=== PATIENT | female | born 1955 | race Caucasian/White ===

== ENCOUNTER 2017-07-06 20:41 | Inpatient (IN) | payer SELFPAY ==
[2017-07-06] MEDS ORDERED: Albuterol-Ipratrop 3 mg / 0.5 (3 ml) UD ONE (20:53)
[2017-07-06] MEDS: Albuterol-Ipratrop 3 mg / 0.5 (3 ml) UD IH SCH ×2 (21:11→22:07)
[2017-07-06 21:15] LABS: VENOUS BLOOD GAS BASE EXCESS 4.4 mmol/L (0.0-2.0); VENOUS BLOOD GAS PCO2 69 mmHg (40-60); VENOUS BLOOD PH 7.29 (7.32-7.43)
[2017-07-06 21:20] LABS: BASO # 0.2 K/uL (0.0-0.2); BASO % 2.7 % (0.0-2.0); EOS # 0.9 K/uL (0.0-0.7); EOS % 11.3 % (0.0-4.0); HEMATOCRIT 40.7 % (34.0-47.0); LYMPH # 2.6 K/uL (1.0-4.3); LYMPH % 33.1 % (20.0-40.0); MEAN CELL VOLUME 68.8 fL (81.0-99.0); MEAN CORPUSCULAR HEMOGLOBIN 21.6 pg (27.0-31.0); MEAN CORPUSCULAR HGB CONC 31.4 g/dL (33.0-37.0); MEAN PLATELET VOLUME 8.1 fL (7.2-11.7); MONO # 0.6 K/uL (0.0-0.8); MONO % 8.2 % (0.0-10.0); RED CELL DISTRIBUTION WIDTH 14.7 % (11.5-14.5); WHITE BLOOD COUNT 7.8 K/uL (4.8-10.8)
[2017-07-06 21:29] LABS: CHLORIDE 99 mmol/L (98-107); SODIUM 137 mmol/L (132-148)
[2017-07-06 21:30] LABS: POTASSIUM 3.9 mmol/L (3.6-5.2)
[2017-07-06 21:32] LABS: ALKALINE PHOSPHATASE 62 U/L (38-126); AST/SGOT 23 U/L (14-36); BILIRUBIN,TOTAL 0.4 mg/dL (0.2-1.3); BLOOD UREA NITROGEN 10 mg/dL (7-17); CARBON DIOXIDE 27 mmol/L (22-30); GFR AFRICAN-AMERICAN > 60; TOTAL PROTEIN 8.7 g/dL (6.3-8.3)
[2017-07-06 21:33] LABS: ALT/SGPT 33 U/L (9-52); CALCIUM 9.8 mg/dl (8.6-10.4); GLUCOSE,RANDOM 102 mg/dL (65-105)
[2017-07-06 21:36] LABS: ALB/GLOB RATIO 1.2 (1.0-2.1)
[2017-07-06] MEDS ORDERED: cefTRIAXone IV 1 gm in Dextros 50 ML IVPB ONE (21:50)
[2017-07-06] MEDS ORDERED: Azithromycin 500 MG in Sodium Chloride 0.9% 250 ML IVPB ONE (22:00)
[2017-07-06 22:11] LABS: ABG ALLEN TEST A; ARTERIAL BLOOD HGB O2 SAT 92.3 % (95.0-98.0); CARBOXYHEMOGLOBIN 1.9 % (0.5-1.5); DRAW SITE LR; HHB 4.8 % (0.0-5.0)
--- NOTE | 2017-07-06 22:26 | C.PDOC ---
Time Seen by Provider: 07/06/17 20:48 Chief Complaint (Nursing): Shortness Of Breath History Per: Patient, Family Onset/Duration Of Symptoms: Days (about 1-2 weeks) Current Symptoms Are (Timing): Still Present Initiating Event: Upper Respiratory Illness (?), Other (Change in weather) Current Respiratory Medications: None Severity: Severe Associated Symptoms: Productive Cough Recent travel outside of the [place]: No Additional History Per: Prior Records Past Medical History Reviewed: Historical Data, Nursing Documentation, Vital Signs Vital Signs: Last Vital Signs Temp 98.6 F 07/06/17 20:45 Pulse 114 H 07/06/17 21:52 Resp 20 07/06/17 21:52 BP 97/68 L 07/06/17 21:52 Pulse Ox 96 07/06/17 21:52 - Medical History PMH: No Chronic Diseases Surgical History: No Surg Hx Family History: States: Unknown Family Hx - Social History Hx Tobacco Use: No Hx Alcohol Use: No Hx Substance Use: No Review Of Systems Except As Marked, All Systems Reviewed And Found Negative. Constitutional: Positive for: Fever (?) ENT: Negative for: Throat Pain Cardiovascular: Negative for: Chest Pain Respiratory: Positive for: Cough, Shortness of Breath, Wheezing. Negative for: Hemoptysis Gastrointestinal: Negative for: Vomiting, Abdominal Pain, Diarrhea Genitourinary: Negative for: Dysuria Musculoskeletal: Negative for: Neck Pain, Back Pain, Leg Pain Skin: Negative for: Rash Neurological: Negative for: Weakness, Numbness Physical Exam - Physical Exam Appears: In Acute Distress Skin: Normal Color, Warm, Dry, No Rash Head: Atraumatic, Normacephalic Eye(s): bilateral: PERRL, EOMI Neck: Normal ROM, Supple Cardiovascular: Rhythm Regular Respiratory: No Accessory Muscle Use, Wheezing Gastrointestinal/Abdominal: Soft, No Tenderness Back: No CVA Tenderness Extremity: Normal ROM, No Pedal Edema, No Calf Tenderness Neurological/Psych: Oriented x3, Normal Motor, Normal Sensation ED Course And Treatment - Laboratory Results Result Diagrams: 07/06/17 21:15 07/06/17 21:15 Interpretation Of Abnormal: hypercarbia ECG: Interpreted By Me, Viewed By Me ECG Rhythm: Sinus Tachycardia, Nonspecific Changes Rate From EC O2 Sat by Pulse Oximetry: 91 (on RA) Pulse Ox Interpretation: Abnormal Interpretation Of Abnormal: Hypoxia on RA - Radiology CXR: Interpreted by Me, Viewed By Me CXR Interpretation: Yes: Infiltrates (LLL) Progress Note: Hypercarbia improved after meds and pt is no longer in distress, but pt is still wheezing and hypoxic on RA. Progress - Interventions Interventions:: Observation, Intravenous fluid, Oxygen - Medications Administered Inhaled nebulized: Anticholinergic, Beta-2 agonist Intravenous: Corticosteroid, Other (Abx) - Data Reviewed Data Reviewed: Lab, Diagnostic imaging, EKG, Old records - Patient Status Patient status: Partially improved - Critical Care Citical Care: Excluding Proc Time Critical Care Time: 45 minutes - Continuity of Care Discussed patient case with:: Patient, Family-HIPPA compliant, ED Nurse, On- call PMD-pt unassigned - Patient Plan Patient Plan: Admission Disposition Discussed With : Shoaib Verduzco Comment: He accepted pt on hospitalist service. Doctor Will See Patient In The: Hospital Counseled Patient/Family Regarding: Studies Performed, Diagnosis - Disposition Disposition: HOSPITALIZED Disposition Time: 22:30 Condition: FAIR - Clinical Impression Clinical Impression: Pneumonia, Wheezing, Hypoxia
--- NOTE | 2017-07-06 23:44 | CP.PCM.HP ---
<RodneyNandini SSharmaine - Last Filed: 07/06/17 23:47> History of Present Illness - History of Present Illness History of Present Illness: CC: "shortness of breath" HPI: 61 year old [place] female with no past medical history who presents to the hospital today for difficulty breathing. History and review of systems was done by seal delivery vehicle officer #[id number] and with patient's daughter per phone. Patient is currently oriented to person and place but believes it is 1917. Per daughter she is usually oriented x3 at home. Per daughter the patient has been having shortness of breath for one week which she went to her PMD and she received and completed a 5 day course of antibiotic called Azythromycin. Patient states she usually has more shortness of breath when she is laying down. Per daughter the patient has been coughing for the past 2 days mildly with some white sputum. The patient denies chest pain or palpitations. Per daughter the patient denies fever, nausea, vomiting, constipation, diarrhea or dysuria. The daughter states she has not been around anyone that has been sick. The last time she traveled to [facility] was September 2015 and she has not recently traveled anywhere. PMD: Dr. Goldstein Past Medical History: denies Past Surgical History: denies Medications: denies Allergies: dust allergy, NKDA Family History: denies Present on Admission - Present on Admission Any Indicators Present on Admission: No Review of Systems - Review of Systems Systems not reviewed;Unavailable: Altered Mental Status, Language Barrier - Constitutional Constitutional: absent: Headache - Cardiovascular Cardiovascular: Dyspnea. absent: Chest Pain, Chest Pain at Rest, Chest Pain with Activity - Respiratory Respiratory: Dyspnea, Dyspnea on Exertion - Gastrointestinal Gastrointestinal: absent: Constipation, Diarrhea, Nausea, Vomiting - Neurological Neurological: absent: Weakness Past Patient History - Past Social History Smoking Status: Never Smoked - PSYCHIATRIC Hx Substance Use: No Meds Allergies/Adverse Reactions: Allergies Allergy/AdvReac Type Severity Reaction Status Date / Time No Known Allergies Allergy Verified 07/06/17 20:53 Physical Exam - Constitutional Appears: No Acute Distress, Cachectic - Head Exam Head Exam: ATRAUMATIC, NORMAL INSPECTION, NORMOCEPHALIC - Eye Exam Eye Exam: EOMI, Normal appearance, PERRL Pupil Exam: NORMAL ACCOMODATION - ENT Exam ENT Exam: Mucous Membranes Moist - Neck Exam Neck exam: Positive for: Normal Inspection - Respiratory Exam Respiratory Exam: Wheezes, NORMAL BREATHING PATTERN. absent: Clear to Auscultation Bilateral - Cardiovascular Exam Cardiovascular Exam: REGULAR RHYTHM, RRR, +S1, +S2. absent: JVD - GI/Abdominal Exam GI & Abdominal Exam: Normal Bowel Sounds, Soft. absent: Tenderness - Extremities Exam Extremities exam: Positive for: normal inspection. Negative for: pedal edema, tenderness - Neurological Exam Neurological exam: Alert Additional comments: Oriented to person and place. Stated it was currently 191 - Skin Skin Exam: Normal Color, Warm Results - Vital Signs Recent Vital Signs: Last Vital Signs Temp 98.6 F 07/06/17 20:45 Pulse 106 H 07/06/17 22:41 Resp 18 07/06/17 22:41 BP 119/68 07/06/17 22:41 Pulse Ox 97 07/06/17 22:41 - Labs Result Diagrams: 07/06/17 21:15 07/06/17 21:15 Labs: Laboratory Results - last 24 hr 07/06/17 07/06/17 07/06/17 21:10 21:10 21:15 WBC 7.8 RBC 5.92 H Hgb 12.8 Hct 40.7 MCV 68.8 L MCH 21.6 L MCHC 31.4 L RDW 14.7 H Plt Count 385 MPV 8.1 Neut % (Auto) 44.7 L Lymph % (Auto) 33.1 [place] % (Auto) 8.2 Eos % (Auto) 11.3 H Baso % (Auto) 2.7 H Neut # 3.5 Lymph # 2.6 [place] # 0.6 Eos # 0.9 H Baso # 0.2 Puncture Site pCO2 pO2 20 L HCO3 ABG pH ABG Total CO2 ABG O2 Saturation ABG Base Excess ABG Hemoglobin ABG Carboxyhemoglobin POC ABG HHb (Measured) ABG Methemoglobin Tucker Test VBG pH 7.29 L VBG pCO2 69 H* VBG HCO3 26.4 VBG Total CO2 35.3 H VBG O2 Sat (Calc) 33.7 L VBG Base Excess 4.4 H VBG Potassium 3.8 A-a O2 Difference Respiratory Index Hgb O2 Saturation Sodium 140.0 Chloride 105.0 Glucose 115 H Lactate 1.0 FiO2 Crit Value Called To Ronit jacob md Crit Value Called By Thompson vaca commercial lending assistant Crit Value Read Back Y Blood Gas Notified Time 2116 Potassium Carbon Dioxide Anion Gap BUN Creatinine Est GFR ( Amer) Est GFR (Non-Af Amer) Random Glucose Calcium Total Bilirubin AST ALT Alkaline Phosphatase Troponin I NT-Pro-B Natriuret Pep Total Protein Albumin Globulin Albumin/Globulin Ratio Venous Blood Potassium 3.8 Influenza Typ A,B (EIA) Negative for flu a/b 07/06/17 07/06/17 21:15 22:05 WBC RBC Hgb Hct MCV MCH MCHC RDW Plt Count MPV Neut % (Auto) Lymph % (Auto) Jessamine % (Auto) Eos % (Auto) Baso % (Auto) Neut # Lymph # Jessamine # Eos # Baso # Puncture Site Lr pCO2 50 H pO2 65 L HCO3 25.8 ABG pH 7.35 ABG Total CO2 29.1 H ABG O2 Saturation 95.1 ABG Base Excess 1.3 ABG Hemoglobin 11.6 L ABG Carboxyhemoglobin 1.9 H POC ABG HHb (Measured) 4.8 ABG Methemoglobin 1.0 Tucker Test A VBG pH VBG pCO2 VBG HCO3 VBG Total CO2 VBG O2 Sat (Calc) VBG Base Excess VBG Potassium A-a O2 Difference 72.0 Respiratory Index 1.1 Hgb O2 Saturation 92.3 L Sodium 137 Chloride 99 Glucose Lactate FiO2 28.0 Crit Value Called To Crit Value Called By Crit Value Read Back Blood Gas Notified Time Potassium 3.9 Carbon Dioxide 27 Anion Gap 15 BUN 10 Creatinine 0.8 Est GFR ( Amer) > 60 Est GFR (Non-Af Amer) > 60 Random Glucose 102 Calcium 9.8 Total Bilirubin 0.4 AST 23 ALT 33 Alkaline Phosphatase 62 Troponin I < 0.0120 NT-Pro-B Natriuret Pep 54.3 Total Protein 8.7 H Albumin 4.6 Globulin 4.0 H Albumin/Globulin Ratio 1.2 Venous Blood Potassium Influenza Typ A,B (EIA) Assessment & Plan - Assessment and Plan (Free Text) Assessment: 1.) Shortness of breath secondary to possible community acquired pneumonia - Rocephin started 07/06 - Azithromycin started 07/06 - Betty-medrol 40mg q8 - Duonebs q4H - NC 2L PRN - Influenza A&B: negative - Troponin: Negative - f/u chest x-ray - f/u blood culture 2.) Acidemia - resolved - ABG pH: 7.35 - ABG O2 saturation: 95.1 - HCO3: 25.8 - pCO2: 50 3.) Prophylaxis - Heparin SC - Pepcid 20mg daily - SCDs Discussed with Dr. Luba Stevens PGY-1 <Shoaib Verduzco - Last Filed: 07/07/17 06:35> Results - Vital Signs Recent Vital Signs: Last Vital Signs Temp 97.8 F 07/07/17 00:42 Pulse 109 H 07/07/17 00:42 Resp 20 07/07/17 00:42 BP 96/62 L 07/07/17 00:42 Pulse Ox 99 07/07/17 00:42 - Labs Result Diagrams: 07/06/17 21:15 07/06/17 21:15 Labs: Laboratory Results - last 24 hr 07/06/17 07/06/17 07/06/17 21:10 21:10 21:15 WBC 7.8 RBC 5.92 H Hgb 12.8 Hct 40.7 MCV 68.8 L MCH 21.6 L MCHC 31.4 L RDW 14.7 H Plt Count 385 MPV 8.1 Neut % (Auto) 44.7 L Lymph % (Auto) 33.1 [place] % (Auto) 8.2 Eos % (Auto) 11.3 H Baso % (Auto) 2.7 H Neut # 3.5 Lymph # 2.6 [place] # 0.6 Eos # 0.9 H Baso # 0.2 Puncture Site pCO2 pO2 20 L HCO3 ABG pH ABG Total CO2 ABG O2 Saturation ABG Base Excess ABG Hemoglobin ABG Carboxyhemoglobin POC ABG HHb (Measured) ABG Methemoglobin Tucker Test VBG pH 7.29 L VBG pCO2 69 H* VBG HCO3 26.4 VBG Total CO2 35.3 H VBG O2 Sat (Calc) 33.7 L VBG Base Excess 4.4 H VBG Potassium 3.8 A-a O2 Difference Respiratory Index Hgb O2 Saturation Sodium 140.0 Chloride 105.0 Glucose 115 H Lactate 1.0 FiO2 Crit Value Called To Ronit jacob md Crit Value Called By Thompson vaca commercial lending assistant Crit Value Read Back Y Blood Gas Notified Time 2116 Potassium Carbon Dioxide Anion Gap BUN Creatinine Est GFR ( Amer) Est GFR (Non-Af Amer) Random Glucose Calcium Total Bilirubin AST ALT Alkaline Phosphatase Troponin I NT-Pro-B Natriuret Pep Total Protein Albumin Globulin Albumin/Globulin Ratio Venous Blood Potassium 3.8 Influenza Typ A,B (EIA) Negative for flu a/b 07/06/17 07/06/17 21:15 22:05 WBC RBC Hgb Hct MCV MCH MCHC RDW Plt Count MPV Neut % (Auto) Lymph % (Auto) Jess[place] % (Auto) Eos % (Auto) Baso % (Auto) Neut # Lymph # [place] # Eos # Baso # Puncture Site Lr pCO2 50 H pO2 65 L HCO3 25.8 ABG pH 7.35 ABG Total CO2 29.1 H ABG O2 Saturation 95.1 ABG Base Excess 1.3 ABG Hemoglobin 11.6 L ABG Carboxyhemoglobin 1.9 H POC ABG HHb (Measured) 4.8 ABG Methemoglobin 1.0 Tucker Test A VBG pH VBG pCO2 VBG HCO3 VBG Total CO2 VBG O2 Sat (Calc) VBG Base Excess VBG Potassium A-a O2 Difference 72.0 Respiratory Index 1.1 Hgb O2 Saturation 92.3 L Sodium 137 Chloride 99 Glucose Lactate FiO2 28.0 Crit Value Called To Crit Value Called By Crit Value Read Back Blood Gas Notified Time Potassium 3.9 Carbon Dioxide 27 Anion Gap 15 BUN 10 Creatinine 0.8 Est GFR ( Amer) > 60 Est GFR (Non-Af Amer) > 60 Random Glucose 102 Calcium 9.8 Total Bilirubin 0.4 AST 23 ALT 33 Alkaline Phosphatase 62 Troponin I < 0.0120 NT-Pro-B Natriuret Pep 54.3 Total Protein 8.7 H Albumin 4.6 Globulin 4.0 H Albumin/Globulin Ratio 1.2 Venous Blood Potassium Influenza Typ A,B (EIA) Assessment & Plan - Date & Time Date: 07/07/17 (I have seen and examined the patient. I agree with the findings and plan of care as documented by Dr. Stevens. Patient with pneumonia. Rocephin and Azithromycin. Denies history of asthma or COPD. Positive for wheezing. Solumedrol, Duonebs, and oxygen. Check blood and sputum cultures. Monitor for acute changes.) Time: 06:34 Attending/Attestation - Attestation I have personally seen and examined this patient.: Yes I have fully participated in the care of the patient.: Yes I have reviewed all pertinent clinical information: Yes
[2017-07-07] MEDS: Albuterol-Ipratrop 3 mg / 0.5 (3 ml) UD INH SCH ×6 (00:05→23:46)
[2017-07-07 00:43] VITALS: RESP 20
[2017-07-07] MEDS ORDERED: Albuterol-Ipratrop 3 mg / 0.5 (3 ml) UD INH SCH (02:00)
[2017-07-07] MEDS: MethylPREDNISolone 40 mg Vial IV SCH ×3 (06:03→22:28)
--- NOTE | 2017-07-07 09:29 | RAD ---
PROCEDURE: CHEST RADIOGRAPH, 1 VIEW HISTORY: Shortness of breath COMPARISON: None available. FINDINGS: LUNGS: Mild venous congestion. Bibasilar breast and nipple shadows. Mild patchy increased markings at the bases. Correlation with lateral view may be helpful. Few scattered upper lobe granulomatous changes. PLEURA: No pneumothorax or pleural fluid seen. CARDIOVASCULAR: Calcification at the aortic knob. OSSEOUS STRUCTURES: No significant abnormalities. VISUALIZED UPPER ABDOMEN: Normal. OTHER FINDINGS: None. IMPRESSION: Mild venous congestion. Bibasilar breast and nipple shadows. Mild patchy increased markings at the bases. Correlation with lateral view may be helpful. Few scattered upper lobe granulomatous changes.
[2017-07-07] MEDS: Azithromycin 500 MG in Sodium Chloride 0.9% 250 ML IVPB SCH (10:44)
--- NOTE | 2017-07-07 16:15 | CP.PCM.PN ---
<BuckyRichard R - Last Filed: 07/07/17 16:11> Subjective - Date & Time of Evaluation Date of Evaluation: 07/07/17 Time of Evaluation: 13:15 - Subjective Subjective: PGY-1 medicine note. No acute overnight events. Patient was seen and examined at bedside. She denied any complaints. She said she was breathing better. Dr Evans walked her around the hallway and she was able to without difficulty. She denied chest pain, shortness of breath, abdominal pain, headache, leg pain, nausea, vomiting, fever , chills, diarrhea, constipation. Objective - Vital Signs/Intake and Output Vital Signs (last 24 hours): Temp Pulse Resp BP Pulse Ox 97.6 F 110 H 20 104/67 96 07/07/17 08:34 07/07/17 14:44 07/07/17 08:34 07/07/17 14:44 07/07/17 14:44 - Medications Medications: Current Medications Albuterol/Ipratropium (Duoneb 3 Mg/0.5 Mg (3 Ml) Ud) 3 ml INH RQ4 [facility] Last Admin: 07/07/17 16:06 Dose: 3 ml Famotidine (Pepcid) 20 mg PO DAILY [facility] Last Admin: 07/07/17 10:45 Dose: 20 mg Heparin Sodium (Porcine) (Heparin) 5,000 units SC Q8 [facility] Last Admin: 07/07/17 06:03 Dose: 5,000 units Azithromycin 500 mg/ Sodium (Chloride) 250 mls @ 250 mls/hr IVPB DAILY [facility] Last Admin: 07/07/17 10:44 Dose: 250 mls/hr Ceftriaxone Sodium 1 gm/ (Sodium Chloride) 100 mls @ 100 mls/hr IVPB DAILY [facility] Last Admin: 07/07/17 10:43 Dose: 100 mls/hr Methylprednisolone (Solu-Medrol) 40 mg IV Q8 [facility] Last Admin: 07/07/17 06:03 Dose: 40 mg Pneumococcal Polyvalent Vaccine (Pneumovax 23 Vaccine) 0.5 ml IM .ONCE ONE Stop: 07/10/17 10:01 - Labs Labs: 07/06/17 21:15 07/06/17 21:15 - Additional Findings Additional findings: - Constitutional Appears: No Acute Distress, Cachectic - Head Exam Head Exam: ATRAUMATIC, NORMAL INSPECTION, NORMOCEPHALIC - Eye Exam Eye Exam: EOMI, Normal appearance, PERRL Pupil Exam: NORMAL ACCOMODATION - ENT Exam ENT Exam: Mucous Membranes Moist - Neck Exam Neck exam: Positive for: Normal Inspection - Respiratory Exam Respiratory Exam: Wheezes, NORMAL BREATHING PATTERN. absent: Clear to Auscultation Bilateral - Cardiovascular Exam Cardiovascular Exam: REGULAR RHYTHM, RRR, +S1, +S2. absent: JVD - GI/Abdominal Exam GI & Abdominal Exam: Normal Bowel Sounds, Soft. absent: Tenderness - Extremities Exam Extremities exam: Positive for: normal inspection. Negative for: pedal edema, tenderness - Neurological Exam Neurological exam: Alert, AAOx3 Additional comments: - Skin Skin Exam: Normal Color, Warm Assessment and Plan - Assessment and Plan (Free Text) Assessment: 1.) Shortness of breath secondary to possible community acquired pneumonia - Rocephin 1g iv qd started 07/06 - Azithromycin 500mg iv qd started 07/06 - Betty-medrol 40mg q8 - Duonebs q4H - NC 2L PRN - Influenza A&B: negative - Troponin: Negative - Pulmicort 0.25mg INH bid - chest x-ray 07/06 shows mild venous congestion and incrased markings at bases b/l - f/u blood culture 2.) Acidemia - resolved - ABG pH: 7.35 - ABG O2 saturation: 95.1 - HCO3: 25.8 - pCO2: 50 3.) Prophylaxis - Heparin SC - Pepcid 20mg daily - SCDs <Evans,Peter H - Last Filed: 07/07/17 16:29> Objective - Vital Signs/Intake and Output Vital Signs (last 24 hours): Temp Pulse Resp BP Pulse Ox 97.6 F 110 H 20 104/67 96 07/07/17 08:34 07/07/17 14:44 07/07/17 08:34 07/07/17 14:44 07/07/17 14:44 - Medications Medications: Current Medications Albuterol/Ipratropium (Duoneb 3 Mg/0.5 Mg (3 Ml) Ud) 3 ml INH RQ4 [facility] Last Admin: 07/07/17 16:06 Dose: 3 ml Budesonide (Pulmicort Respules) 0.25 mg INH RQ12 [facility] Famotidine (Pepcid) 20 mg PO DAILY [facility] Last Admin: 07/07/17 10:45 Dose: 20 mg Heparin Sodium (Porcine) (Heparin) 5,000 units SC Q8 [facility] Last Admin: 07/07/17 06:03 Dose: 5,000 units Azithromycin 500 mg/ Sodium (Chloride) 250 mls @ 250 mls/hr IVPB DAILY [facility] Last Admin: 07/07/17 10:44 Dose: 250 mls/hr Ceftriaxone Sodium 1 gm/ (Sodium Chloride) 100 mls @ 100 mls/hr IVPB DAILY [facility] Last Admin: 07/07/17 10:43 Dose: 100 mls/hr Methylprednisolone (Solu-Medrol) 40 mg IV Q8 [facility] Last Admin: 07/07/17 06:03 Dose: 40 mg Pneumococcal Polyvalent Vaccine (Pneumovax 23 Vaccine) 0.5 ml IM .ONCE ONE Stop: 07/10/17 10:01 - Labs Labs: 07/06/17 21:15 07/06/17 21:15 Attending/Attestation - Attestation I have personally seen and examined this patient.: Yes I have fully participated in the care of the patient.: Yes I have reviewed all pertinent clinical information, including history, physical exam and plan: Yes Notes (Text): Medical attending: Patient was seen and examined by me, agree with the above note by medical lab technician. This is my first time seeing patient symmetric reviewed previous labs and notes as well as discussed with the patient. Other resident was able to translate for us. From what I understand the patient reported that she is feeling much improved since admission. On exam it should be noted that she still has a lot of expiratory wheezes. So at this time we didn't feel comfortable making her walk around the room with us for will try to do that the following day. The patient will be on IV Solu-Medrol , we elected to start inhaled twice a day also we should check peak flows as well. The team that admitted her start the patient on Rocephin and azithromycin. Cultures are negative at this time nevertheless we'll continue these antibiotics for the time being Thank you very much Keshawn Evans
--- NOTE | 2017-07-07 22:15 | CARD ---
APPROVED REPORT EKG Measurement Heart [id number] <Conclusion> Sinus tachycardia Possible Left atrial enlargement Septal infarct, age undetermined Abnormal ECG
[2017-07-08] MEDS: Albuterol-Ipratrop 3 mg / 0.5 (3 ml) UD INH SCH ×6 (03:16→23:53)
[2017-07-08] MEDS: MethylPREDNISolone 40 mg Vial IV SCH ×3 (05:50→21:54)
[2017-07-08] MEDS: Budesonide 0.25 mg/2 ml Inhal Susp UD INH SCH ×2 (07:20→20:15)
[2017-07-08 08:00] LABS: LYMPH # 0.9 K/uL (1.0-4.3); MEAN CORPUSCULAR HGB CONC 31.3 g/dL (33.0-37.0); MONO # 0.6 K/uL (0.0-0.8)
[2017-07-08 08:09] LABS: LYMPH % 4.7 % (20.0-40.0); MEAN CELL VOLUME 67.6 fL (81.0-99.0); MEAN CORPUSCULAR HEMOGLOBIN 21.1 pg (27.0-31.0); MEAN PLATELET VOLUME 8.5 fL (7.2-11.7); MONO % 3.1 % (0.0-10.0); PLATELET COUNT 331 K/uL (130-400); RED CELL DISTRIBUTION WIDTH 14.7 % (11.5-14.5)
[2017-07-08 08:13] LABS: WHITE BLOOD COUNT 19.9 K/uL (4.8-10.8)
[2017-07-08 08:28] LABS: CHLORIDE 103 mmol/L (98-107)
[2017-07-08 08:29] LABS: POTASSIUM 4.3 mmol/L (3.6-5.2); SODIUM 136 mmol/L (132-148)
[2017-07-08 08:31] LABS: AST/SGOT 19 U/L (14-36); BILIRUBIN,TOTAL 0.7 mg/dL (0.2-1.3); CARBON DIOXIDE 24 mmol/L (22-30); GFR AFRICAN-AMERICAN > 60
[2017-07-08 08:32] LABS: ALB/GLOB RATIO 1.7 (1.0-2.1); ALKALINE PHOSPHATASE 52 U/L (38-126); ALT/SGPT 27 U/L (9-52); BLOOD UREA NITROGEN 17 mg/dL (7-17); CALCIUM 9.1 mg/dl (8.6-10.4); GLUCOSE,RANDOM 123 mg/dL (65-105); TOTAL PROTEIN 6.2 g/dL (6.3-8.3)
[2017-07-08 09:41] LABS: NEUTROPHIL 95 % (50-75); TOTAL CELLS COUNTED 100
[2017-07-08] MEDS: Azithromycin 500 MG in Sodium Chloride 0.9% 250 ML IVPB SCH (10:54)
--- NOTE | 2017-07-08 15:06 | CP.PCM.PN ---
<Richard Lawler - Last Filed: 07/08/17 15:03> Subjective - Date & Time of Evaluation Date of Evaluation: 07/08/17 Time of Evaluation: 14:00 - Subjective Subjective: PGY-[address] Evans. No acute events overnight. Patient was with telesitter, per nurse the patient tried to get out of bed last night. We walked with her in the hallway and patient ambulates fine. She was resting comfortably in bed when we walked in. She had no complaints today. She denied chest pain, shortness of breath, headache, fever, chills, abdominal pain, diarrhea, vomiting. Objective - Vital Signs/Intake and Output Vital Signs (last 24 hours): Temp Pulse Resp BP Pulse Ox 98.1 F 112 H 20 110/68 96 07/08/17 09:00 07/08/17 09:00 07/08/17 09:00 07/08/17 09:00 07/08/17 09:00 Intake and Output: 07/08/17 07/08/17 06:59 18:59 Intake Total 500 200 Balance 500 200 - Medications Medications: Current Medications Albuterol/Ipratropium (Duoneb 3 Mg/0.5 Mg (3 Ml) Ud) 3 ml INH RQ4 [facility] Last Admin: 07/08/17 11:20 Dose: 3 ml Budesonide (Pulmicort Respules) 0.25 mg INH RQ12 [facility] Last Admin: 07/08/17 07:20 Dose: 0.25 mg Famotidine (Pepcid) 20 mg PO DAILY [facility] Last Admin: 07/08/17 10:53 Dose: 20 mg Heparin Sodium (Porcine) (Heparin) 5,000 units SC Q8 [facility] Last Admin: 07/08/17 13:55 Dose: 5,000 units Azithromycin 500 mg/ Sodium (Chloride) 250 mls @ 250 mls/hr IVPB DAILY [facility] Last Admin: 07/08/17 10:54 Dose: 250 mls/hr Ceftriaxone Sodium 1 gm/ (Dextrose) 100 mls @ 100 mls/hr IVPB DAILY [facility] Last Admin: 07/08/17 12:36 Dose: 100 mls/hr Methylprednisolone (Solu-Medrol) 40 mg IV Q8 [facility] Last Admin: 07/08/17 13:55 Dose: 40 mg Pneumococcal Polyvalent Vaccine (Pneumovax 23 Vaccine) 0.5 ml IM .ONCE ONE Stop: 07/10/17 10:01 - Labs Labs: 07/08/17 07:48 07/08/17 07:48 - Additional Findings Additional findings: - Constitutional Appears: No Acute Distress, appears well - Head Exam Head Exam: ATRAUMATIC, NORMAL INSPECTION, NORMOCEPHALIC - Eye Exam Eye Exam: EOMI, Normal appearance, PERRL Pupil Exam: NORMAL ACCOMODATION - ENT Exam ENT Exam: Mucous Membranes Moist - Neck Exam Neck exam: Positive for: Normal Inspection - Respiratory Exam Respiratory Exam: (+) Wheezes bilaterally, NORMAL BREATHING PATTERN. absent: Clear to Auscultation Bilateral - Cardiovascular Exam Cardiovascular Exam: REGULAR RHYTHM, RRR, +S1, +S2. absent: JVD - GI/Abdominal Exam GI & Abdominal Exam: Normal Bowel Sounds, Soft. absent: Tenderness - Extremities Exam Extremities exam: Positive for: normal inspection. Negative for: pedal edema, tenderness - Neurological Exam Neurological exam: Alert, AAOx3 Additional comments: - Skin Skin Exam: Normal Color, Warm Assessment and Plan - Assessment and Plan (Free Text) Assessment: Assessment: 1.) Shortness of breath secondary to possible community acquired pneumonia - Influenza A&B: negative - Troponin: Negative - NC 2L PRN - chest x-ray 07/06 shows mild venous congestion and increased markings at bases b/l - blood culture 07/06 no growth up to date - f/u Chest CT Meds: - Rocephin 1g iv qd started 07/06 - Azithromycin 500mg iv qd started 07/06 - Betty-medrol 40mg q8 - Duonebs q4H - Pulmicort 0.25mg INH bid 2.) Acidemia - resolved - ABG pH: 7.35 - ABG O2 saturation: 95.1 - HCO3: 25.8 - pCO2: 50 3.) Elevated WBC - afebrile - possibly 2/2 steroid treatment 3.) Prophylaxis - Heparin SC - Pepcid 20mg daily - SCDs <Evans,Peter H - Last Filed: 07/08/17 15:43> Objective - Vital Signs/Intake and Output Vital Signs (last 24 hours): Temp Pulse Resp BP Pulse Ox 98.1 F 112 H 20 110/68 96 07/08/17 09:00 07/08/17 09:00 07/08/17 09:00 07/08/17 09:00 07/08/17 09:00 Intake and Output: 07/08/17 07/08/17 06:59 18:59 Intake Total 500 950 Balance 500 950 - Medications Medications: Current Medications Albuterol/Ipratropium (Duoneb 3 Mg/0.5 Mg (3 Ml) Ud) 3 ml INH RQ4 [facility] Last Admin: 07/08/17 11:20 Dose: 3 ml Budesonide (Pulmicort Respules) 0.25 mg INH RQ12 [facility] Last Admin: 07/08/17 07:20 Dose: 0.25 mg Famotidine (Pepcid) 20 mg PO DAILY [facility] Last Admin: 07/08/17 10:53 Dose: 20 mg Heparin Sodium (Porcine) (Heparin) 5,000 units SC Q8 [facility] Last Admin: 07/08/17 13:55 Dose: 5,000 units Azithromycin 500 mg/ Sodium (Chloride) 250 mls @ 250 mls/hr IVPB DAILY [facility] Last Admin: 07/08/17 10:54 Dose: 250 mls/hr Ceftriaxone Sodium 1 gm/ (Dextrose) 100 mls @ 100 mls/hr IVPB DAILY [facility] Last Admin: 07/08/17 12:36 Dose: 100 mls/hr Methylprednisolone (Solu-Medrol) 40 mg IV Q8 [facility] Last Admin: 07/08/17 13:55 Dose: 40 mg Pneumococcal Polyvalent Vaccine (Pneumovax 23 Vaccine) 0.5 ml IM .ONCE ONE Stop: 07/10/17 10:01 - Labs Labs: 07/08/17 07:48 07/08/17 07:48 Attending/Attestation - Attestation I have personally seen and examined this patient.: Yes I have fully participated in the care of the patient.: Yes I have reviewed all pertinent clinical information, including history, physical exam and plan: Yes Notes (Text): 07/08/17 15:39 Medical attending: Patient was seen and examined by me, agree the above note by lead medical technologist. The patient ambulates quite well. For some reason there was a video nematologist in the room. The patient does not need this. I asked him to discontinue this. I also spoke with the patient's daughter over the phone On exam the patient was not in any acute distress she appeared to be speaking in full sentences. Nevertheless she still has wheezing on exam she did not have any fevers. Recommend continuing the patient on Solu-Medrol as well as Pulmicort. She remains on IV antibiotics as well regarding get a CAT scan without contrast for further evaluation of the lungs Thank you very much, Keshawn Evans
--- NOTE | 2017-07-08 17:29 | CT ---
PROCEDURE: CT Chest without contrast HISTORY: Findings on chest x-ray suggestive of pneumonia COMPARISON: 07/06/2017 TECHNIQUE: Contiguous axial images were obtained through the chest without intravenous contrast enhancement. Sagittal and coronal reconstructions were performed. Radiation dose (DLP): 135.38 mGy-cm. This CT exam was performed using one or more of the following dose reduction techniques: Automated exposure control, adjustment of the mA and/or kV according to patient size, and/or use of iterative reconstruction technique. FINDINGS: LUNGS: Clear lungs. Visualized airway clear. MEDIASTINUM: Unremarkable thoracic aorta. No aneurysm. Normal sized heart. Main pulmonary artery unremarkable. No vascular congestion. No lymphadenopathy. PLEURA: No pleural fluid. No pneumothorax. BONES: No fracture. No destructive lesion. UPPER ABDOMEN: Grossly unremarkable. OTHER FINDINGS: None. IMPRESSION: Unremarkable non-contrast enhanced CT of the chest.
[2017-07-09] MEDS: Albuterol-Ipratrop 3 mg / 0.5 (3 ml) UD INH SCH ×3 (03:04→11:24)
[2017-07-09] MEDS: MethylPREDNISolone 40 mg Vial IV SCH ×2 (06:00→14:58)
[2017-07-09] MEDS: Budesonide 0.25 mg/2 ml Inhal Susp UD INH SCH (07:13)
[2017-07-09 08:56] LABS: LYMPH # 1.1 K/uL (1.0-4.3); LYMPH % 5.6 % (20.0-40.0); MEAN CELL VOLUME 67.9 fL (81.0-99.0); MEAN CORPUSCULAR HEMOGLOBIN 21.1 pg (27.0-31.0); MEAN CORPUSCULAR HGB CONC 31.1 g/dL (33.0-37.0); MEAN PLATELET VOLUME 8.5 fL (7.2-11.7); MONO # 0.5 K/uL (0.0-0.8); MONO % 2.8 % (0.0-10.0); PLATELET COUNT 322 K/uL (130-400); WHITE BLOOD COUNT 19.4 K/uL (4.8-10.8)
[2017-07-09 09:14] LABS: CHLORIDE 101 mmol/L (98-107)
[2017-07-09 09:15] LABS: POTASSIUM 3.8 mmol/L (3.6-5.2); SODIUM 136 mmol/L (132-148)
[2017-07-09 09:17] LABS: ALB/GLOB RATIO 1.8 (1.0-2.1); ALKALINE PHOSPHATASE 57 U/L (38-126); ALT/SGPT 25 U/L (9-52); AST/SGOT 17 U/L (14-36); BILIRUBIN,TOTAL 0.6 mg/dL (0.2-1.3); BLOOD UREA NITROGEN 17 mg/dL (7-17); CARBON DIOXIDE 23 mmol/L (22-30); GFR AFRICAN-AMERICAN > 60; TOTAL PROTEIN 6.1 g/dL (6.3-8.3)
[2017-07-09 09:18] LABS: GLUCOSE,RANDOM 118 mg/dL (65-105)
[2017-07-09 10:21] LABS: NEUTROPHIL 91 % (50-75); TOTAL CELLS COUNTED 100
[2017-07-09] MEDS: Azithromycin 500 MG in Sodium Chloride 0.9% 250 ML IVPB SCH (10:40)
--- NOTE | 2017-07-09 13:11 | CP.PCM.DIS ---
<BuckyRichard R - Last Filed: 07/09/17 13:02> Provider - Provider Date of Admission: 07/06/17 22:31 Attending physician: Keshawn Evans DO Primary care physician: PMD: none Consults: none Time Spent in preparation of Discharge (in minutes): 45 Diagnosis - Discharge Diagnosis (1) Asthma Status: Resolved (2) Pneumonia Status: Resolved Priority: Medium Hospital Course - Lab Results Lab Results: Micro Results 07/06/17 21:50 Blood Blood Culture - Preliminary NO GROWTH AFTER 48 HOURS 07/06/17 21:30 Blood Blood Culture - Preliminary NO GROWTH AFTER 48 HOURS Most Recent Lab Values WBC 19.4 K/uL (4.8-10.8) H 07/09/17 08:50 RBC 4.86 Mil/uL (3.80-5.20) 07/09/17 08:50 Hgb 10.3 g/dL (11.0-16.0) L 07/09/17 08:50 Hct 33.0 % (34.0-47.0) L 07/09/17 08:50 MCV 67.9 fL (81.0-99.0) L 07/09/17 08:50 MCH 21.1 pg (27.0-31.0) L 07/09/17 08:50 MCHC 31.1 g/dL (33.0-37.0) L 07/09/17 08:50 RDW 15.0 % (11.5-14.5) H 07/09/17 08:50 Plt Count 322 K/uL (130-400) 07/09/17 08:50 MPV 8.5 fL (7.2-11.7) 07/09/17 08:50 Neut % (Auto) 91.6 % (50.0-75.0) H 07/09/17 08:50 Lymph % (Auto) 5.6 % (20.0-40.0) L 07/09/17 08:50 [place] % (Auto) 2.8 % (0.0-10.0) 07/09/17 08:50 Eos % (Auto) 0.0 % (0.0-4.0) 07/09/17 08:50 Baso % (Auto) 0.0 % (0.0-2.0) 07/09/17 08:50 Neut # 17.8 K/uL (1.8-7.0) H 07/09/17 08:50 Lymph # 1.1 K/uL (1.0-4.3) 07/09/17 08:50 [place] # 0.5 K/uL (0.0-0.8) 07/09/17 08:50 Eos # 0.0 K/uL (0.0-0.7) 07/09/17 08:50 Baso # 0.0 K/uL (0.0-0.2) 07/09/17 08:50 Neutrophils % (Manual) 91 % (50-75) H 07/09/17 08:50 Band Neutrophils % 1 % (0-2) 07/08/17 07:48 Lymphocytes % (Manual) 5 % (20-40) L 07/09/17 08:50 Monocytes % (Manual) 4 % (0-10) 07/09/17 08:50 Platelet Estimate Normal (NORMAL) 07/09/17 08:50 Polychromasia Slight 07/09/17 08:50 Hypochromasia (manual) Moderate 07/09/17 08:50 Poikilocytosis (manual Slight 07/08/17 07:48 Anisocytosis (manual) Moderate 07/09/17 08:50 Microcytosis (manual) Slight 07/09/17 08:50 Target Cells Slight 07/09/17 08:50 Ovalocytes Slight 07/09/17 08:50 Puncture Site Lr 07/06/17 22:05 pCO2 50 mm/Hg (35-45) H 07/06/17 22:05 pO2 65 mm/Hg (80-100) L 07/06/17 22:05 HCO3 25.8 mmol/L (21-28) 07/06/17 22:05 ABG pH 7.35 (7.35-7.45) 07/06/17 22:05 ABG Total CO2 29.1 mmol/L (22-28) H 07/06/17 22:05 ABG O2 Saturation 95.1 % (95-98) 07/06/17 22:05 ABG Base Excess 1.3 mmol/L (-2.0-3.0) 07/06/17 22:05 ABG Hemoglobin 11.6 g/dL (11.7-17.4) L 07/06/17 22:05 ABG Carboxyhemoglobin 1.9 % (0.5-1.5) H 07/06/17 22:05 POC ABG HHb (Measured) 4.8 % (0.0-5.0) 07/06/17 22:05 ABG Methemoglobin 1.0 % (0.0-3.0) 07/06/17 22:05 Tucker Test A 07/06/17 22:05 VBG pH 7.29 (7.32-7.43) L 07/06/17 21:10 VBG pCO2 69 mmHg (40-60) H* 07/06/17 21:10 VBG HCO3 26.4 mmol/L 07/06/17 21:10 VBG Total CO2 35.3 mmol/L (22-28) H 07/06/17 21:10 VBG O2 Sat (Calc) 33.7 % (40-65) L 07/06/17 21:10 VBG Base Excess 4.4 mmol/L (0.0-2.0) H 07/06/17 21:10 VBG Potassium 3.8 mmol/L (3.6-5.2) 07/06/17 21:10 A-a O2 Difference 72.0 mm/Hg 07/06/17 22:05 Respiratory Index 1.1 07/06/17 22:05 Hgb O2 Saturation 92.3 % (95.0-98.0) L 07/06/17 22:05 Sodium 140.0 mmol/l (132-148) 07/06/17 21:10 Chloride 105.0 mmol/L (98-107) 07/06/17 21:10 Glucose 115 mg/dl (65-105) H 07/06/17 21:10 Lactate 1.0 mmol/L (0.7-2.1) 07/06/17 21:10 FiO2 28.0 % 07/06/17 22:05 Crit Value Called To Damaris jacob md 07/06/17 21:10 Crit Value Called By Thompson vaca rrt 07/06/17 21:10 Crit Value Read Back Y 07/06/17 21:10 Blood Gas Notified Time 211607/06/17 21:10 Sodium 136 mmol/L (132-148) 07/09/17 08:50 Potassium 3.8 mmol/L (3.6-5.2) 07/09/17 08:50 Chloride 101 mmol/L (98-107) 07/09/17 08:50 Carbon Dioxide 23 mmol/L (22-30) 07/09/17 08:50 Anion Gap 15 (10-20) 07/09/17 08:50 BUN 17 mg/dL (7-17) 07/09/17 08:50 Creatinine 0.6 mg/dL (0.7-1.2) L 07/09/17 08:50 Est GFR ( Amer) > 60 07/09/17 08:50 Est GFR (Non-Af Amer) > 60 07/09/17 08:50 Random Glucose 118 mg/dL (65-105) H 07/09/17 08:50 Calcium 9.0 mg/dl (8.6-10.4) 07/09/17 08:50 Total Bilirubin 0.6 mg/dL (0.2-1.3) 07/09/17 08:50 AST 17 U/L (14-36) 07/09/17 08:50 ALT 25 U/L (9-52) 07/09/17 08:50 Alkaline Phosphatase 57 U/L (38-126) 07/09/17 08:50 Troponin I < 0.0120 ng/mL (0.00-0.120) 07/06/17 21:15 NT-Pro-B Natriuret Pep 54.3 pg/mL (0-900) 07/06/17 21:15 Total Protein 6.1 g/dL (6.3-8.3) L 07/09/17 08:50 Albumin 4.0 g/dL (3.5-5.0) 07/09/17 08:50 Globulin 2.2 gm/dL (2.2-3.9) 07/09/17 08:50 Albumin/Globulin Ratio 1.8 (1.0-2.1) 07/09/17 08:50 Venous Blood Potassium 3.8 mmol/L (3.6-5.2) 07/06/17 21:10 Influenza Typ A,B (EIA) Negative for flu a/b (NEGATIVE) 07/06/17 21:10 - Hospital Course Hospital Course: C: "shortness of breath" HPI: 61 year old Italian female with no past medical history who presents to the hospital today for difficulty breathing. History and review of systems was done by correspondence coordinator #[phone] and with patient's daughter per phone. Patient is currently oriented to person and place but believes it is 1917. Per daughter she is usually oriented x3 at home. Per daughter the patient has been having shortness of breath for one week which she went to her PMD and she received and completed a 5 day course of antibiotic called Azythromycin. Patient states she usually has more shortness of breath when she is laying down. Per daughter the patient has been coughing for the past 2 days mildly with some white sputum. The patient denies chest pain or palpitations. Per daughter the patient denies fever, nausea, vomiting, constipation, diarrhea or dysuria. The daughter states she has not been around anyone that has been sick. The last time she traveled to [facility] was September 2015 and she has not recently traveled anywhere. PMD: Dr. Goldstein Past Medical History: denies Past Surgical History: denies Medications: denies Allergies: dust allergy, NKDA Family History: denies HOSPITAL COURSE: This is a patient that came in with shortness of breath. A chest x-ray was done on 07/06 that showed mild venous congestion and increased markings at bases b/l. A CT chest was ordered on 07/08 which was unremarkable. Blood cultures were drawn on admission which showed no growth up to date. Her influenza A&B was negative. Pneumonia was considered thus she was given Rocephin 1g iv qd started 07/06 and Azithromycin 500mg iv qd started 07/06. To alleviate the shortness of breath she was given Betty-medrol 40mg q8, Duonebs q4H , Pulmicort 0.25mg INH bid. She was also provided nasal cannula 2L prn which she did not use often. Her peak flow meter was below normal (around 200). Her WBCs were elevated at discharge secondary to steroids as she was afebrile. In addition to pneumonia, an asthma related etiology was considered for her shortness of breath. Discharge Exam - Head Exam Head Exam: ATRAUMATIC, NORMAL INSPECTION, NORMOCEPHALIC - Additional Findings Additional findings: - Constitutional Appears: No Acute Distress, appears well - Head Exam Head Exam: ATRAUMATIC, NORMAL INSPECTION, NORMOCEPHALIC - Eye Exam Eye Exam: EOMI, Normal appearance, PERRL Pupil Exam: NORMAL ACCOMODATION - ENT Exam ENT Exam: Mucous Membranes Moist - Neck Exam Neck exam: Positive for: Normal Inspection - Respiratory Exam Respiratory Exam: NORMAL BREATHING PATTERN. absent: wheezing - Cardiovascular Exam Cardiovascular Exam: REGULAR RHYTHM, RRR, +S1, +S2. absent: JVD - GI/Abdominal Exam GI & Abdominal Exam: Normal Bowel Sounds, Soft. absent: Tenderness - Extremities Exam Extremities exam: Positive for: normal inspection. Negative for: pedal edema, tenderness - Neurological Exam Neurological exam: Alert, AAOx3 Additional comments: - Skin Skin Exam: Normal Color, Warm Discharge Plan - Discharge Medications Prescriptions: Albuterol HFA [Ventolin HFA 90 mcg/actuation (8 g)] 1 puff IH Q4H PRN #1 inhaler PRN Reason: Shortness Of Breath Azithromycin [Zithromax Tri-Shashank] 500 mg PO DAILY #4 tablet Budesonide [Pulmicort Respules] 0.25 mg INH RQ12 #1 nebu Prednisone [Deltasone] 20 mg PO DAILY #9 tablet - Follow Up Plan Condition: FAIR Disposition: HOME/ ROUTINE Instructions: Albuterol (By breathing), Prednisone (By mouth), Azithromycin ( By mouth), Reactive Airways Disease (DC), Hypoxia (GEN), Pneumonia (DC) Additional Instructions: Patient is medically stable for discharge. Patient is to take the following NEW medications as prescribed: Albuterol HFA 1 puff inhaled q4h as needed for shortness of breath Azithromycin 500mg 1 tab by mouth for 4 days Budesonide 0.25mg inhaled every 12 hours Prednisone 20mg 1 tab by mouth every day The patient is to establish care with a primary medical doctor (PMD) and follow- up with PMD in 1 week. Patient is to resume all home medication, if being taken. If symptoms worsen or return, the patient should promptly return to the ER. <Keshawn Evans - Last Filed: 07/09/17 17:58> Provider - Provider Date of Admission: 07/06/17 22:31 Attending physician: Keshawn Evans DO Hospital Course - Lab Results Lab Results: Micro Results 07/06/17 21:50 Blood Blood Culture - Preliminary NO GROWTH AFTER 48 HOURS 07/06/17 21:30 Blood Blood Culture - Preliminary NO GROWTH AFTER 48 HOURS Most Recent Lab Values WBC 19.4 K/uL (4.8-10.8) H 07/09/17 08:50 RBC 4.86 Mil/uL (3.80-5.20) 07/09/17 08:50 Hgb 10.3 g/dL (11.0-16.0) L 07/09/17 08:50 Hct 33.0 % (34.0-47.0) L 07/09/17 08:50 MCV 67.9 fL (81.0-99.0) L 07/09/17 08:50 MCH 21.1 pg (27.0-31.0) L 07/09/17 08:50 MCHC 31.1 g/dL (33.0-37.0) L 07/09/17 08:50 RDW 15.0 % (11.5-14.5) H 07/09/17 08:50 Plt Count 322 K/uL (130-400) 07/09/17 08:50 MPV 8.5 fL (7.2-11.7) 07/09/17 08:50 Neut % (Auto) 91.6 % (50.0-75.0) H 07/09/17 08:50 Lymph % (Auto) 5.6 % (20.0-40.0) L 07/09/17 08:50 [place] % (Auto) 2.8 % (0.0-10.0) 07/09/17 08:50 Eos % (Auto) 0.0 % (0.0-4.0) 07/09/17 08:50 Baso % (Auto) 0.0 % (0.0-2.0) 07/09/17 08:50 Neut # 17.8 K/uL (1.8-7.0) H 07/09/17 08:50 Lymph # 1.1 K/uL (1.0-4.3) 07/09/17 08:50 [place] # 0.5 K/uL (0.0-0.8) 07/09/17 08:50 Eos # 0.0 K/uL (0.0-0.7) 07/09/17 08:50 Baso # 0.0 K/uL (0.0-0.2) 07/09/17 08:50 Neutrophils % (Manual) 91 % (50-75) H 07/09/17 08:50 Band Neutrophils % 1 % (0-2) 07/08/17 07:48 Lymphocytes % (Manual) 5 % (20-40) L 07/09/17 08:50 Monocytes % (Manual) 4 % (0-10) 07/09/17 08:50 Platelet Estimate Normal (NORMAL) 07/09/17 08:50 Polychromasia Slight 07/09/17 08:50 Hypochromasia (manual) Moderate 07/09/17 08:50 Poikilocytosis (manual Slight 07/08/17 07:48 Anisocytosis (manual) Moderate 07/09/17 08:50 Microcytosis (manual) Slight 07/09/17 08:50 Target Cells Slight 07/09/17 08:50 Ovalocytes Slight 07/09/17 08:50 Puncture Site Lr 07/06/17 22:05 pCO2 50 mm/Hg (35-45) H 07/06/17 22:05 pO2 65 mm/Hg (80-100) L 07/06/17 22:05 HCO3 25.8 mmol/L (21-28) 07/06/17 22:05 ABG pH 7.35 (7.35-7.45) 07/06/17 22:05 ABG Total CO2 29.1 mmol/L (22-28) H 07/06/17 22:05 ABG O2 Saturation 95.1 % (95-98) 07/06/17 22:05 ABG Base Excess 1.3 mmol/L (-2.0-3.0) 07/06/17 22:05 ABG Hemoglobin 11.6 g/dL (11.7-17.4) L 07/06/17 22:05 ABG Carboxyhemoglobin 1.9 % (0.5-1.5) H 07/06/17 22:05 POC ABG HHb (Measured) 4.8 % (0.0-5.0) 07/06/17 22:05 ABG Methemoglobin 1.0 % (0.0-3.0) 07/06/17 22:05 Tucker Test A 07/06/17 22:05 VBG pH 7.29 (7.32-7.43) L 07/06/17 21:10 VBG pCO2 69 mmHg (40-60) H* 07/06/17 21:10 VBG HCO3 26.4 mmol/L 07/06/17 21:10 VBG Total CO2 35.3 mmol/L (22-28) H 07/06/17 21:10 VBG O2 Sat (Calc) 33.7 % (40-65) L 07/06/17 21:10 VBG Base Excess 4.4 mmol/L (0.0-2.0) H 07/06/17 21:10 VBG Potassium 3.8 mmol/L (3.6-5.2) 07/06/17 21:10 A-a O2 Difference 72.0 mm/Hg 07/06/17 22:05 Respiratory Index 1.1 07/06/17 22:05 Hgb O2 Saturation 92.3 % (95.0-98.0) L 07/06/17 22:05 Sodium 140.0 mmol/l (132-148) 07/06/17 21:10 Chloride 105.0 mmol/L (98-107) 07/06/17 21:10 Glucose 115 mg/dl (65-105) H 07/06/17 21:10 Lactate 1.0 mmol/L (0.7-2.1) 07/06/17 21:10 FiO2 28.0 % 07/06/17 22:05 Crit Value Called To Damaris jacob md 07/06/17 21:10 Crit Value Called By Thompson vaca rrt 07/06/17 21:10 Crit Value Read Back Y 07/06/17 21:10 Blood Gas Notified Time 211607/06/17 21:10 Sodium 136 mmol/L (132-148) 07/09/17 08:50 Potassium 3.8 mmol/L (3.6-5.2) 07/09/17 08:50 Chloride 101 mmol/L (98-107) 07/09/17 08:50 Carbon Dioxide 23 mmol/L (22-30) 07/09/17 08:50 Anion Gap 15 (10-20) 07/09/17 08:50 BUN 17 mg/dL (7-17) 07/09/17 08:50 Creatinine 0.6 mg/dL (0.7-1.2) L 07/09/17 08:50 Est GFR ( Amer) > 60 07/09/17 08:50 Est GFR (Non-Af Amer) > 60 07/09/17 08:50 Random Glucose 118 mg/dL (65-105) H 07/09/17 08:50 Calcium 9.0 mg/dl (8.6-10.4) 07/09/17 08:50 Total Bilirubin 0.6 mg/dL (0.2-1.3) 07/09/17 08:50 AST 17 U/L (14-36) 07/09/17 08:50 ALT 25 U/L (9-52) 07/09/17 08:50 Alkaline Phosphatase 57 U/L (38-126) 07/09/17 08:50 Troponin I < 0.0120 ng/mL (0.00-0.120) 07/06/17 21:15 NT-Pro-B Natriuret Pep 54.3 pg/mL (0-900) 07/06/17 21:15 Total Protein 6.1 g/dL (6.3-8.3) L 07/09/17 08:50 Albumin 4.0 g/dL (3.5-5.0) 07/09/17 08:50 Globulin 2.2 gm/dL (2.2-3.9) 07/09/17 08:50 Albumin/Globulin Ratio 1.8 (1.0-2.1) 07/09/17 08:50 Venous Blood Potassium 3.8 mmol/L (3.6-5.2) 07/06/17 21:10 Influenza Typ A,B (EIA) Negative for flu a/b (NEGATIVE) 07/06/17 21:10 Attending/Attestation - Attestation I have personally seen and examined this patient.: Yes I have fully participated in the care of the patient.: Yes I have reviewed all pertinent clinical information, including history, physical exam and plan: Yes Notes (Text): 07/09/17 17:58 Medical attending: Patient was seen and examined by me, agrees the above note by remote medical coder. The patient was able to stand up and walk around with us. On exam she was not short of breath. She also did not have any further wheezing on expiration. The patient gave us a telephone and we spoke with family member. We explained to the family member that she needs to take a tapering dose of prednisone, as well as a long-acting inhaled steroid-dependent. There is also given be a prescription for rescue inhaler as well Thank you very much, Keshawn Evans
[2017-07-09] MEDS ORDERED: Pneumococcal 23-Valent Vaccine IM ONE (15:00)
[2017-07-09] MEDS ORDERED: Influenza Vaccine 60 mcg/0.5 mL SYR (4YR UP) IM ONE (15:00)
[2017-07-09 16:44] VITALS: BP 111/65; PULSE 106; TEMP 98.2; O2SAT 98
== END 2017-07-09 17:15 | disposition home or self-care (01) | DRG 194 ==
LOC: C.ER 20:41 → C.9E 22:31 → C.3T 23:23
PROVIDERS: ADMIT Family Medicine; ATTEND Hospitalist
DX: J18.9 Pneumonia, unspecified organism (principal); J45.909 Unspecified asthma, uncomplicated; E87.2 Acidosis; R09.02 Hypoxemia

== ENCOUNTER 2017-08-29 10:24 | Inpatient (IN) | payer OTHER ==
[2017-08-29 10:38] VITALS: BMI 15.5
[2017-08-29] MEDS ORDERED: Sodium Chloride 0.9% 1,000 ML IV STA (10:58)
--- NOTE | 2017-08-29 11:01 | C.PDOC ---
History Of Present Illness 61 y/o F c PMHx asthma p/w fever, cough productive of white sputum x 1 week. Patient denies chills, chest pain, nausea, vomiting, diarrhea, dysuria, bleeding , rash. Patient was in this ED 2 months ago and admitted for asthma and possible pneumonia. Time Seen by Provider: 08/29/17 10:50 Chief Complaint (Nursing): Shortness Of Breath Past Medical History Vital Signs: Last Vital Signs Temp 100.7 F H 08/29/17 11:35 Pulse 118 H 08/29/17 11:09 Resp 20 08/29/17 11:18 BP 130/77 08/29/17 11:09 Pulse Ox 90 L 08/29/17 11:49 - Medical History PMH: Pneumonia Family History: States: No Known Family Hx - Social History Hx Tobacco Use: No Hx Alcohol Use: No Hx Substance Use: No - Immunization History Hx Tetanus Toxoid Vaccination: No Hx Influenza Vaccination: No Hx Pneumococcal Vaccination: No Review Of Systems Except As Marked, All Systems Reviewed And Found Negative. Cardiovascular: Negative for: Chest Pain Gastrointestinal: Negative for: Vomiting Physical Exam - Physical Exam Additional Physical Exam Comments: Constitutional: No acute distress. Head: Normocephalic. Atraumatic. Eyes: PERRL. ENT: Moist mucous membranes. Neck: Supple. Cardiovascular: Tachycardic. Radial pulse 2+ bilaterally. Chest: No tenderness. Respiratory: LLL dullness. RLL crackles. GI: Soft. Nontender. Nondistended. Back: No CVA tenderness. Musculoskeletal: No tenderness or swelling of extremities. Skin: No rash. Neurologic: Alert, no focal deficit. ED Course And Treatment - Laboratory Results Result Diagrams: 08/29/17 11:19 08/29/17 11:38 O2 Sat by Pulse Oximetry: 90 (RA) Pulse Ox Interpretation: Normal Medical Decision Making Medical Decision Making: Patient with fever, tachycardia and hypoxia, positive for SIRS. Will evaluate for UTI vs influenza vs URI vs pneumonia. Hydrate with IVF, acetaminophen for fever. EKG Sinus rhythm, 118 bpm, no ST elevations. CXR: IMPRESSION: Patchy airspace disease in the left lower lobe may represent developing pneumonia. Follow-up after medical management is recommended to ensure complete resolution. Background of COPD. Admitted to Dr. Seals requiring antibiotics for pneumonia. Admitted to hospital 2 months ago, will start on health care associated antibiotics. Disposition - Disposition Disposition: HOSPITALIZED Disposition Time: 13:19 Condition: GUARDED Forms: [facility] ([place]) - POA Core Measure Indicators: Pneumonia - Clinical Impression Clinical Impression: Pneumonia - Scribe Statement The provider has reviewed the documentation as recorded by the Stephanieibkecia Vu All medical record entries made by the Stephanieibe were at my direction and personally dictated by me. I have reviewed the chart and agree that the record accurately reflects my personal performance of the history, physical exam, medical decision making, and the department course for this patient. I have also personally directed, reviewed, and agree with the discharge instructions and disposition.
[2017-08-29] MEDS ORDERED: Sodium Chloride 0.9% 1,000 ML ONE (11:24)
[2017-08-29 11:25] LABS: BASO # 0.1 K/uL (0.0-0.2); BASO % 0.6 % (0.0-2.0); EOS % 0.1 % (0.0-4.0); HEMATOCRIT 34.7 % (34.0-47.0); LYMPH # 1.3 K/uL (1.0-4.3); MEAN CELL VOLUME 66.9 fL (81.0-99.0); MEAN CORPUSCULAR HEMOGLOBIN 21.9 pg (27.0-31.0); MEAN CORPUSCULAR HGB CONC 32.7 g/dL (33.0-37.0); MEAN PLATELET VOLUME 8.5 fL (7.2-11.7); MONO # 0.8 K/uL (0.0-0.8); MONO % 7.1 % (0.0-10.0); NRBC % 0.1 % (0.0-2.0); RED CELL DISTRIBUTION WIDTH 14.4 % (11.5-14.5); WHITE BLOOD COUNT 11.8 K/uL (4.8-10.8)
[2017-08-29 11:34] LABS: INR 1.1
[2017-08-29 11:36] LABS: VENOUS BLOOD GAS BASE EXCESS 5.7 mmol/L (0.0-2.0); VENOUS BLOOD GAS PCO2 53 mmHg (40-60); VENOUS BLOOD PH 7.39 (7.32-7.43)
[2017-08-29 11:50] LABS: RBC URINE 11 /hpf (0-3); URINE BILIRUBIN NEGATIVE (NEGATIVE); URINE BLOOD 2+ (NEGATIVE); URINE COLOR Yellow (YELLOW); URINE GLUCOSE (UA) NORMAL (Normal); URINE KETONE 2+ mg/dL (NEGATIVE); URINE LEUKOCYTE ESTERASE TRACE Leu/uL (Negative); URINE PROTEIN 2+ mg/dL (NEGATIVE); URINE UROBILINOGEN NORMAL mg/dL (0.2-1.0); WBC URINE 3 /hpf (0-5)
[2017-08-29 11:53] LABS: ALKALINE PHOSPHATASE 51 U/L (38-126); ALT/SGPT 23 U/L (9-52); AST/SGOT 23 U/L (14-36); BILIRUBIN,TOTAL 0.6 mg/dL (0.2-1.3); BLOOD UREA NITROGEN 11 mg/dL (7-17); CALCIUM 8.5 mg/dl (8.6-10.4); CARBON DIOXIDE 31 mmol/L (22-30); CHLORIDE 91 mmol/L (98-107); GFR AFRICAN-AMERICAN > 60; GLUCOSE,RANDOM 101 mg/dL (65-105); MAGNESIUM 1.7 mg/dL (1.6-2.3); PHOSPHOROUS 2.9 mg/dL (2.5-4.5); POTASSIUM 3.5 mmol/L (3.6-5.2); SODIUM 131 mmol/L (132-148); TOTAL PROTEIN 7.9 g/dL (6.3-8.3)
--- NOTE | 2017-08-29 12:58 | RAD ---
HISTORY: COMPARISON: 07/06/2017 TECHNIQUE: Chest PA and lateral FINDINGS: LINES AND TUBES: None. LUNG AND PLEURA: There is pulmonary hyperinflation and peribronchial cuffing with streaky opacities in the lungs. There is patchy airspace disease in the left lower lobe. HEART AND MEDIASTINUM: The heart is not enlarged. The hilar and mediastinal contours are within normal limits. SKELETAL STRUCTURES: The bony structures are within normal limits for the patient's age. VISUALIZED UPPER ABDOMEN: Normal. OTHER FINDINGS: None. IMPRESSION: Patchy airspace disease in the left lower lobe may represent developing pneumonia. Follow-up after medical management is recommended to ensure complete resolution. Background of COPD.
[2017-08-29] MEDS ORDERED: Piperacill/Tazo 4.5gm in Dex 4.5 GM/100 ML BAG IVPB STA (13:03)
[2017-08-29] MEDS ORDERED: Vancomycin 1 gm/NS 200 ml 1 GM/200 ML BAG IVPB STA (13:03)
[2017-08-29] MEDS ORDERED: Albuterol HFA 90 mcg/actuation (8 g) IH PRN (18:21)
[2017-08-29] MEDS ORDERED: Piperacillin/Tazobact 3.375 GM in Sodium Chloride 100 ML IVPB SCH (18:30)
[2017-08-29] MEDS ORDERED: Albuterol-Ipratrop 3 mg / 0.5 (3 ml) UD INH PRN (18:36)
[2017-08-29] MEDS: Potassium Chloride 10 mEq ER Tab PO SCH (19:15)
[2017-08-29] MEDS: Budesonide 0.25 mg/2 ml Inhal Susp UD INH SCH (20:52)
--- NOTE | 2017-08-29 20:58 | CP.PCM.CON ---
History of Present Illness - History of Present Illness History of Present Illness: INFECTIOUS DISEASE CONSULT: HPI: 61 y/o F c PMHx asthma p/w fever, cough productive of white sputum x 1 week. Patient denies chills, chest pain, nausea, vomiting, diarrhea, dysuria, bleeding , rash. Patient was in this ED 2 months ago and admitted for asthma and possible pneumonia. HX OBTAINED FROM CHART PT. UNABLE TO GIVE DETAILS. CXR ON ADMISSION LLL EVOLVING PNEUMONIA. PT ON IV ZOSYN AND I DOSE OF VANCO 1GM GIVEN IN ER PER NOTES. INFECTIOUS DISEASE CONSULT REQUESTED FOR PNUMONIA/AND SEPSIS. PMH: Pneumonia Family History: States: No Known Family Hx - Social History Hx Tobacco Use: No Hx Alcohol Use: No Hx Substance Use: No - Immunization History Hx Tetanus Toxoid Vaccination: No Hx Influenza Vaccination: No Hx Pneumococcal Vaccination: No Review Of Systems Except As Marked, All Systems Reviewed And Found Negative. Cardiovascular: Negative for: Chest Pain Gastrointestinal: Negative for: Vomiting ALLERGY: NKA. Past Patient History - Past Medical History & Family History Past Medical History?: Yes - Past Social History Smoking Status: Never Smoked - PULMONARY Hx Respiratory Disorders: Yes Hx Pneumonia: Yes - MUSCULOSKELETAL/RHEUMATOLOGICAL Hx Musculoskeletal Disorders: No Hx Falls: No - PSYCHIATRIC Hx Psychophysiologic Disorder: No Hx Substance Use: No Meds Allergies/Adverse Reactions: Allergies Allergy/AdvReac Type Severity Reaction Status Date / Time No Known Allergies Allergy Verified 08/29/17 10:34 - Medications Medications: Current Medications Albuterol (Ventolin Hfa 90 Mcg/Actuation (8 G)) 1 puff IH RQ4 PRN PRN Reason: Shortness of Breath Budesonide (Pulmicort Respules) 0.25 mg INH RQ12 [facility] Last Admin: 08/29/17 20:52 Dose: 0.25 mg Enoxaparin Sodium (Lovenox) 40 mg SC DAILY [facility] Piperacillin Sod/Tazobactam Sod (Zosyn 3.375 Gm Iv Premix) 3.375 gm in 50 mls @ 100 mls/hr IVPB Q8 [facility] Pantoprazole Sodium (Protonix Ec Tab) 40 mg PO DAILY [facility] Potassium Chloride (Klor-Con 10) 10 meq PO BRK [facility] Physical Exam - Constitutional Appears: No Acute Distress, Cachectic - Head Exam Head Exam: NORMAL INSPECTION - Eye Exam Eye Exam: EOMI, PERRL - ENT Exam ENT Exam: Normal Oropharynx - Neck Exam Neck exam: Positive for: Normal Inspection - Respiratory Exam Respiratory Exam: Rhonchi (LT.LOWER BASE.) - Cardiovascular Exam Cardiovascular Exam: Tachycardia, REGULAR RHYTHM, +S1, +S2 - GI/Abdominal Exam GI & Abdominal Exam: Normal Bowel Sounds, Soft. absent: Tenderness - Extremities Exam Extremities exam: Positive for: pedal pulses present. Negative for: calf tenderness, pedal edema - Neurological Exam Neurological exam: Alert, CN II-XII Intact, Reflexes Normal - Skin Skin Exam: Normal Color, Warm Results - Vital Signs Recent Vital Signs: Last Vital Signs Temp 98.9 F 08/29/17 16:51 Pulse 96 H 08/29/17 16:51 Resp 18 08/29/17 16:51 BP 101/65 08/29/17 16:51 Pulse Ox 96 08/29/17 16:51 - Labs Result Diagrams: 08/29/17 11:19 08/29/17 11:38 Labs: Laboratory Results - last 24 hr 08/29/17 08/29/17 08/29/17 10:57 11:19 11:19 WBC 11.8 H RBC 5.18 Hgb 11.3 Hct 34.7 MCV 66.9 L MCH 21.9 L MCHC 32.7 L RDW 14.4 Plt Count 308 MPV 8.5 Neut % (Auto) 81.2 H Lymph % (Auto) 11.0 L Mcnairy % (Auto) 7.1 Eos % (Auto) 0.1 Baso % (Auto) 0.6 Neut # 9.6 H Lymph # 1.3 Mcnairy # 0.8 Eos # 0.0 Baso # 0.1 PT 12.8 H INR 1.1 APTT 27 pO2 VBG pH VBG pCO2 VBG HCO3 VBG Total CO2 VBG O2 Sat (Calc) VBG Base Excess VBG Potassium Sodium Chloride Glucose Lactate Potassium Carbon Dioxide Anion Gap BUN Creatinine Est GFR ( Amer) Est GFR (Non-Af Amer) POC Glucose (mg/dL) Random Glucose Calcium Phosphorus Magnesium Total Bilirubin AST ALT Alkaline Phosphatase Total Protein Albumin Globulin Albumin/Globulin Ratio Venous Blood Potassium Urine Color Urine Clarity Urine pH Ur Specific [place] Urine Protein Urine Glucose (UA) Urine Ketones Urine Blood Urine Nitrate Urine Bilirubin Urine Urobilinogen Ur Leukocyte Esterase Urine WBC (Auto) Urine RBC (Auto) Ur Squamous Epith Cells Influenza Typ A,B (EIA) Negative for flu a/b 08/29/17 08/29/17 08/29/17 11:30 11:32 11:38 WBC RBC Hgb Hct MCV MCH MCHC RDW Plt Count MPV Neut % (Auto) Lymph % (Auto) Mcnairy % (Auto) Eos % (Auto) Baso % (Auto) Neut # Lymph # Mcnairy # Eos # Baso # PT INR APTT pO2 41 VBG pH 7.39 VBG pCO2 53 VBG HCO3 28.8 VBG Total CO2 33.7 H VBG O2 Sat (Calc) 79.7 H VBG Base Excess 5.7 H VBG Potassium 3.9 Sodium 136.0 131 L Chloride 100.0 91 L Glucose 99 Lactate 1.2 Potassium 3.5 L Carbon Dioxide 31 H Anion Gap 12 BUN 11 Creatinine 0.7 Est GFR ( Amer) > 60 Est GFR (Non-Af Amer) > 60 POC Glucose (mg/dL) Random Glucose 101 Calcium 8.5 L Phosphorus 2.9 Magnesium 1.7 Total Bilirubin 0.6 AST 23 ALT 23 Alkaline Phosphatase 51 Total Protein 7.9 Albumin 4.0 Globulin 3.9 Albumin/Globulin Ratio 1.0 Venous Blood Potassium 3.9 Urine Color Yellow Urine Clarity Clear Urine pH 6.0 Ur Specific [place] 1.020 Urine Protein 2+ H Urine Glucose (UA) Normal Urine Ketones 2+ H Urine Blood 2+ H Urine Nitrate Negative Urine Bilirubin Negative Urine Urobilinogen Normal Ur Leukocyte Esterase Trace Urine WBC (Auto) 3 Urine RBC (Auto) 11 H Ur Squamous Epith Cells 1 Influenza Typ A,B (EIA) 08/29/17 12:46 WBC RBC Hgb Hct MCV MCH MCHC RDW Plt Count MPV Neut % (Auto) Lymph % (Auto) Mcnairy % (Auto) Eos % (Auto) Baso % (Auto) Neut # Lymph # Mcnairy # Eos # Baso # PT INR APTT pO2 VBG pH VBG pCO2 VBG HCO3 VBG Total CO2 VBG O2 Sat (Calc) VBG Base Excess VBG Potassium Sodium Chloride Glucose Lactate Potassium Carbon Dioxide Anion Gap BUN Creatinine Est GFR ( Amer) Est GFR (Non-Af Amer) POC Glucose (mg/dL) 101 Random Glucose Calcium Phosphorus Magnesium Total Bilirubin AST ALT Alkaline Phosphatase Total Protein Albumin Globulin Albumin/Globulin Ratio Venous Blood Potassium Urine Color Urine Clarity Urine pH Ur Specific [place] Urine Protein Urine Glucose (UA) Urine Ketones Urine Blood Urine Nitrate Urine Bilirubin Urine Urobilinogen Ur Leukocyte Esterase Urine WBC (Auto) Urine RBC (Auto) Ur Squamous Epith Cells Influenza Typ A,B (EIA) - Imaging and Cardiology Chest x-ray Status: Report reviewed by me (SEE REPORT.) Assessment & Plan (1) Pneumonia Assessment and Plan: W/U FOR PNEUMONIA. ATYPICAL TITRES ESR, CRP. MRSA SCREEN. SPUTUM GM MARLY AND CULTURES. CONTINUE IV ZOSYN DECREASE DOSE 2.25MG IV Q 8HRLY. 08/29/17 ADD IV ZITHROMAX 250MG IV Q 24HRLY. 08/30/17. PULM TOILET. Status: Acute (2) Hypoxia Status: Acute (3) Asthma Status: Resolved
[2017-08-29] MEDS: Piperacill/Tazo 3.375gm in Dex 3.375 GM/50 ML BAG IVPB SCH (21:04)
--- NOTE | 2017-08-29 21:32 | CP.PCM.HP ---
Past Patient History - Past Medical History & Family History Past Medical History?: Yes - Past Social History Smoking Status: Never Smoked - PULMONARY Hx Respiratory Disorders: Yes Hx Pneumonia: Yes - MUSCULOSKELETAL/RHEUMATOLOGICAL Hx Musculoskeletal Disorders: No Hx Falls: No - PSYCHIATRIC Hx Psychophysiologic Disorder: No Hx Substance Use: No Meds Allergies/Adverse Reactions: Allergies Allergy/AdvReac Type Severity Reaction Status Date / Time No Known Allergies Allergy Verified 08/29/17 10:34 Physical Exam - Constitutional Appears: Well - Head Exam Head Exam: ATRAUMATIC, NORMAL INSPECTION, NORMOCEPHALIC - Eye Exam Eye Exam: EOMI, Normal appearance, PERRL Pupil Exam: NORMAL ACCOMODATION, PERRL - ENT Exam ENT Exam: Mucous Membranes Moist, Normal Exam - Neck Exam Neck exam: Positive for: Normal Inspection - Respiratory Exam Respiratory Exam: Decreased Breath Sounds - Cardiovascular Exam Cardiovascular Exam: REGULAR RHYTHM, +S1, +S2 - GI/Abdominal Exam GI & Abdominal Exam: Diminished Bowel Sounds, Soft - Rectal Exam Rectal Exam: Deferred Results - Vital Signs Recent Vital Signs: Last Vital Signs Temp 98.9 F 08/29/17 16:51 Pulse 96 H 08/29/17 16:51 Resp 18 08/29/17 16:51 BP 101/65 08/29/17 16:51 Pulse Ox 96 08/29/17 16:51 - Labs Result Diagrams: 08/29/17 11:19 08/29/17 11:38 Labs: Laboratory Results - last 24 hr 08/29/17 08/29/17 08/29/17 10:57 11:19 11:19 WBC 11.8 H RBC 5.18 Hgb 11.3 Hct 34.7 MCV 66.9 L MCH 21.9 L MCHC 32.7 L RDW 14.4 Plt Count 308 MPV 8.5 Neut % (Auto) 81.2 H Lymph % (Auto) 11.0 L Turner % (Auto) 7.1 Eos % (Auto) 0.1 Baso % (Auto) 0.6 Neut # 9.6 H Lymph # 1.3 Turner # 0.8 Eos # 0.0 Baso # 0.1 PT 12.8 H INR 1.1 APTT 27 pO2 VBG pH VBG pCO2 VBG HCO3 VBG Total CO2 VBG O2 Sat (Calc) VBG Base Excess VBG Potassium Sodium Chloride Glucose Lactate Potassium Carbon Dioxide Anion Gap BUN Creatinine Est GFR ( Amer) Est GFR (Non-Af Amer) POC Glucose (mg/dL) Random Glucose Calcium Phosphorus Magnesium Total Bilirubin AST ALT Alkaline Phosphatase Total Protein Albumin Globulin Albumin/Globulin Ratio Venous Blood Potassium Urine Color Urine Clarity Urine pH Ur Specific [place] Urine Protein Urine Glucose (UA) Urine Ketones Urine Blood Urine Nitrate Urine Bilirubin Urine Urobilinogen Ur Leukocyte Esterase Urine WBC (Auto) Urine RBC (Auto) Ur Squamous Epith Cells Influenza Typ A,B (EIA) Negative for flu a/b 08/29/17 08/29/17 08/29/17 11:30 11:32 11:38 WBC RBC Hgb Hct MCV MCH MCHC RDW Plt Count MPV Neut % (Auto) Lymph % (Auto) Turner % (Auto) Eos % (Auto) Baso % (Auto) Neut # Lymph # Turner # Eos # Baso # PT INR APTT pO2 41 VBG pH 7.39 VBG pCO2 53 VBG HCO3 28.8 VBG Total CO2 33.7 H VBG O2 Sat (Calc) 79.7 H VBG Base Excess 5.7 H VBG Potassium 3.9 Sodium 136.0 131 L Chloride 100.0 91 L Glucose 99 Lactate 1.2 Potassium 3.5 L Carbon Dioxide 31 H Anion Gap 12 BUN 11 Creatinine 0.7 Est GFR ( Amer) > 60 Est GFR (Non-Af Amer) > 60 POC Glucose (mg/dL) Random Glucose 101 Calcium 8.5 L Phosphorus 2.9 Magnesium 1.7 Total Bilirubin 0.6 AST 23 ALT 23 Alkaline Phosphatase 51 Total Protein 7.9 Albumin 4.0 Globulin 3.9 Albumin/Globulin Ratio 1.0 Venous Blood Potassium 3.9 Urine Color Yellow Urine Clarity Clear Urine pH 6.0 Ur Specific [place] 1.020 Urine Protein 2+ H Urine Glucose (UA) Normal Urine Ketones 2+ H Urine Blood 2+ H Urine Nitrate Negative Urine Bilirubin Negative Urine Urobilinogen Normal Ur Leukocyte Esterase Trace Urine WBC (Auto) 3 Urine RBC (Auto) 11 H Ur Squamous Epith Cells 1 Influenza Typ A,B (EIA) 08/29/17 12:46 WBC RBC Hgb Hct MCV MCH MCHC RDW Plt Count MPV Neut % (Auto) Lymph % (Auto) Turner % (Auto) Eos % (Auto) Baso % (Auto) Neut # Lymph # Turner # Eos # Baso # PT INR APTT pO2 VBG pH VBG pCO2 VBG HCO3 VBG Total CO2 VBG O2 Sat (Calc) VBG Base Excess VBG Potassium Sodium Chloride Glucose Lactate Potassium Carbon Dioxide Anion Gap BUN Creatinine Est GFR ( Amer) Est GFR (Non-Af Amer) POC Glucose (mg/dL) 101 Random Glucose Calcium Phosphorus Magnesium Total Bilirubin AST ALT Alkaline Phosphatase Total Protein Albumin Globulin Albumin/Globulin Ratio Venous Blood Potassium Urine Color Urine Clarity Urine pH Ur Specific [place] Urine Protein Urine Glucose (UA) Urine Ketones Urine Blood Urine Nitrate Urine Bilirubin Urine Urobilinogen Ur Leukocyte Esterase Urine WBC (Auto) Urine RBC (Auto) Ur Squamous Epith Cells Influenza Typ A,B (EIA)
[2017-08-30] MEDS: Piperacill/Tazo 3.375gm in Dex 3.375 GM/50 ML BAG IVPB SCH (05:56)
[2017-08-30] MEDS: Budesonide 0.25 mg/2 ml Inhal Susp UD INH SCH ×2 (08:21→19:22)
[2017-08-30] MEDS: Potassium Chloride 10 mEq ER Tab PO SCH (09:58)
[2017-08-30] MEDS: Pantoprazole 40 mg EC Tab PO SCH (09:58)
[2017-08-30] MEDS: Enoxaparin 40 mg Syringe SC SCH (09:58)
[2017-08-30] MEDS: Piperacill/Tazo 2.25gm in Dex 2.25 GM/50 ML BAG IVPB SCH ×2 (14:27→21:48)
[2017-08-30] MEDS: AZITHROMYCIN IVPB SCH (15:27)
[2017-08-30] MEDS: SODIUM CHLORIDE 0.45% IVPB SCH (15:27)
--- NOTE | 2017-08-30 15:40 | CP.PCM.PN ---
Subjective - Date & Time of Evaluation Date of Evaluation: 08/30/17 Time of Evaluation: 11:40 - Subjective Subjective: clinically same Objective - Vital Signs/Intake and Output Vital Signs (last 24 hours): Temp Pulse Resp BP Pulse Ox 99.3 F 107 H 20 105/66 100 08/29/17 23:50 08/30/17 09:24 08/29/17 23:50 08/29/17 23:50 08/29/17 23:50 Intake and Output: 08/30/17 08/30/17 06:59 18:59 Intake Total 290 Balance 290 - Medications Medications: Current Medications Albuterol (Ventolin Hfa 90 Mcg/Actuation (8 G)) 1 puff IH RQ4 PRN PRN Reason: Shortness of Breath Budesonide (Pulmicort Respules) 0.25 mg INH RQ12 [facility] Last Admin: 08/30/17 08:21 Dose: 0.25 mg Enoxaparin Sodium (Lovenox) 40 mg SC DAILY [facility] Last Admin: 08/30/17 09:58 Dose: 40 mg Azithromycin 250 mg/ Sodium (Chloride) 250 mls @ 250 mls/hr IVPB Q24H [facility] Last Admin: 08/30/17 15:27 Dose: 250 mls/hr Piperacillin Sod/Tazobactam Sod (Zosyn 2.25 Gm Iv Premix) 2.25 gm in 50 mls @ 100 mls/hr IVPB Q8H [facility] Last Admin: 08/30/17 14:27 Dose: 100 mls/hr Pantoprazole Sodium (Protonix Ec Tab) 40 mg PO DAILY [facility] Last Admin: 08/30/17 09:58 Dose: 40 mg Potassium Chloride (Klor-Con 10) 10 meq PO BRK [facility] Last Admin: 08/30/17 09:58 Dose: 10 meq - Labs Labs: 08/29/17 11:19 08/29/17 11:38 PT 12.8 SECONDS (9.7-12.2) H 08/29/17 11:19 INR 1.1 08/29/17 11:19 APTT 27 SECONDS (21-34) 08/29/17 11:19 - Constitutional Appears: Well - Head Exam Head Exam: ATRAUMATIC, NORMAL INSPECTION, NORMOCEPHALIC - Eye Exam Eye Exam: EOMI, Normal appearance, PERRL Pupil Exam: NORMAL ACCOMODATION, PERRL - ENT Exam ENT Exam: Mucous Membranes Moist, Normal Exam - Neck Exam Neck Exam: Full ROM, Normal Inspection. absent: Lymphadenopathy - Respiratory Exam Respiratory Exam: Decreased Breath Sounds - Cardiovascular Exam Cardiovascular Exam: REGULAR RHYTHM, +S1, +S2 - GI/Abdominal Exam GI & Abdominal Exam: Soft, Diminished Bowel Sounds - Rectal Exam Rectal Exam: Deferred
[2017-08-30] MEDS ORDERED: Potassium Chloride 10 mEq ER Tab PO STA (17:11)
[2017-08-30] MEDS: Promethazine DM 6.25 mg-15 mg/5 ml Syrup PO PRN (18:24)
[2017-08-30] MEDS: Albuterol-Ipratrop 3 mg / 0.5 (3 ml) UD INH SCH (19:22)
[2017-08-31] MEDS: Albuterol-Ipratrop 3 mg / 0.5 (3 ml) UD INH SCH ×4 (01:57→19:08)
[2017-08-31] MEDS: Piperacill/Tazo 2.25gm in Dex 2.25 GM/50 ML BAG IVPB SCH ×3 (06:01→21:33)
[2017-08-31] MEDS: Potassium Chloride 10 mEq ER Tab PO SCH (08:22)
[2017-08-31] MEDS: Budesonide 0.25 mg/2 ml Inhal Susp UD INH SCH ×2 (08:31→19:09)
[2017-08-31 09:15] LABS: ALB/GLOB RATIO 1.1 (1.0-2.1); ALKALINE PHOSPHATASE 43 U/L (38-126); ALT/SGPT 20 U/L (9-52); AST/SGOT 20 U/L (14-36); BILIRUBIN,TOTAL 0.5 mg/dL (0.2-1.3); BLOOD UREA NITROGEN 6 mg/dL (7-17); CALCIUM 8.3 mg/dl (8.6-10.4); CARBON DIOXIDE 32 mmol/L (22-30); CHLORIDE 99 mmol/L (98-107); GFR AFRICAN-AMERICAN > 60; GLUCOSE,RANDOM 89 mg/dL (65-105); POTASSIUM 4.4 mmol/L (3.6-5.2); SODIUM 134 mmol/L (132-148)
[2017-08-31] MEDS: Pantoprazole 40 mg EC Tab PO SCH (09:34)
[2017-08-31] MEDS: Enoxaparin 40 mg Syringe SC SCH (09:35)
[2017-08-31 10:13] LABS: BASO # 0.1 K/uL (0.0-0.2); BASO % 1.2 % (0.0-2.0); EOS # 0.2 K/uL (0.0-0.7); EOS % 2.9 % (0.0-4.0); LYMPH # 1.4 K/uL (1.0-4.3); LYMPH % 22.1 % (20.0-40.0); MEAN CELL VOLUME 68.4 fL (81.0-99.0); MEAN CORPUSCULAR HGB CONC 32.2 g/dL (33.0-37.0); MEAN PLATELET VOLUME 9.2 fL (7.2-11.7); MONO # 0.7 K/uL (0.0-0.8); MONO % 10.1 % (0.0-10.0); NRBC % 0.1 % (0.0-2.0); WHITE BLOOD COUNT 6.4 K/uL (4.8-10.8)
[2017-08-31] MEDS: AZITHROMYCIN IVPB SCH (13:53)
[2017-08-31] MEDS: SODIUM CHLORIDE 0.45% IVPB SCH (13:53)
--- NOTE | 2017-08-31 14:41 | CP.PCM.PN ---
Subjective - Date & Time of Evaluation Date of Evaluation: 08/31/17 Time of Evaluation: 14:41 Objective - Vital Signs/Intake and Output Vital Signs (last 24 hours): Temp Pulse Resp BP Pulse Ox 98.5 F 87 20 99/64 L 100 08/30/17 23:30 08/31/17 03:30 08/30/17 23:30 08/30/17 23:30 08/30/17 23:30 - Medications Medications: Current Medications Albuterol (Ventolin Hfa 90 Mcg/Actuation (8 G)) 1 puff IH RQ4 PRN PRN Reason: Shortness of Breath Albuterol/Ipratropium (Duoneb 3 Mg/0.5 Mg (3 Ml) Ud) 3 ml INH RQ6 [facility] Last Admin: 08/31/17 13:25 Dose: 3 ml Budesonide (Pulmicort Respules) 0.25 mg INH RQ12 [facility] Last Admin: 08/31/17 08:31 Dose: Not Given Enoxaparin Sodium (Lovenox) 40 mg SC DAILY [facility] Last Admin: 08/31/17 09:35 Dose: 40 mg Azithromycin 250 mg/ Sodium (Chloride) 250 mls @ 250 mls/hr IVPB Q24H [facility] Last Admin: 08/31/17 13:53 Dose: 250 mls/hr Piperacillin Sod/Tazobactam Sod (Zosyn 2.25 Gm Iv Premix) 2.25 gm in 50 mls @ 100 mls/hr IVPB Q8H [facility] Last Admin: 08/31/17 06:01 Dose: 100 mls/hr Montelukast Sodium (Singulair) 10 mg PO HS [facility] Last Admin: 08/30/17 23:18 Dose: Not Given Pantoprazole Sodium (Protonix Ec Tab) 40 mg PO DAILY [facility] Last Admin: 08/31/17 09:34 Dose: 40 mg Potassium Chloride (Klor-Con 10) 10 meq PO BRK [facility] Last Admin: 08/31/17 08:22 Dose: 10 meq Promethazine HCl/Dextromethorphan (Phenergan Dm Syrup) 5 ml PO Q6H PRN PRN Reason: Cough Last Admin: 08/30/17 18:24 Dose: 5 ml - Labs Labs: 08/31/17 08:24 08/31/17 08:24 PT 12.8 SECONDS (9.7-12.2) H 08/29/17 11:19 INR 1.1 08/29/17 11:19 APTT 27 SECONDS (21-34) 08/29/17 11:19
--- NOTE | 2017-08-31 17:39 | CP.PCM.PN ---
Subjective - Date & Time of Evaluation Date of Evaluation: 08/31/17 Time of Evaluation: 10:00 - Subjective Subjective: clinically same Objective - Vital Signs/Intake and Output Vital Signs (last 24 hours): Temp Pulse Resp BP Pulse Ox 98.3 F 104 H 20 102/64 97 08/31/17 15:00 08/31/17 16:00 08/31/17 15:00 08/31/17 15:00 08/31/17 15:00 Intake and Output: 08/31/17 08/31/17 06:59 18:59 Intake Total 640 Balance 640 - Medications Medications: Current Medications Albuterol (Ventolin Hfa 90 Mcg/Actuation (8 G)) 1 puff IH RQ4 PRN PRN Reason: Shortness of Breath Albuterol/Ipratropium (Duoneb 3 Mg/0.5 Mg (3 Ml) Ud) 3 ml INH RQ6 [facility] Last Admin: 08/31/17 13:25 Dose: 3 ml Budesonide (Pulmicort Respules) 0.25 mg INH RQ12 [facility] Last Admin: 08/31/17 08:31 Dose: Not Given Enoxaparin Sodium (Lovenox) 40 mg SC DAILY [facility] Last Admin: 08/31/17 09:35 Dose: 40 mg Azithromycin 250 mg/ Sodium (Chloride) 250 mls @ 250 mls/hr IVPB Q24H [facility] Last Admin: 08/31/17 13:53 Dose: 250 mls/hr Piperacillin Sod/Tazobactam Sod (Zosyn 2.25 Gm Iv Premix) 2.25 gm in 50 mls @ 100 mls/hr IVPB Q8H [facility] Last Admin: 08/31/17 15:06 Dose: 100 mls/hr Methylprednisolone (Solu-Medrol) 60 mg IVP Q8 [facility] Montelukast Sodium (Singulair) 10 mg PO HS [facility] Last Admin: 08/30/17 23:18 Dose: Not Given Pantoprazole Sodium (Protonix Ec Tab) 40 mg PO DAILY [facility] Last Admin: 08/31/17 09:34 Dose: 40 mg Potassium Chloride (Klor-Con 10) 10 meq PO BRK [facility] Last Admin: 08/31/17 08:22 Dose: 10 meq Promethazine HCl/Dextromethorphan (Phenergan Dm Syrup) 5 ml PO Q6H PRN PRN Reason: Cough Last Admin: 08/30/17 18:24 Dose: 5 ml - Labs Labs: 08/31/17 08:24 08/31/17 08:24 PT 12.8 SECONDS (9.7-12.2) H 08/29/17 11:19 INR 1.1 08/29/17 11:19 APTT 27 SECONDS (21-34) 08/29/17 11:19 - Constitutional Appears: Well - Head Exam Head Exam: ATRAUMATIC, NORMAL INSPECTION, NORMOCEPHALIC - Eye Exam Eye Exam: EOMI, Normal appearance, PERRL Pupil Exam: NORMAL ACCOMODATION, PERRL - ENT Exam ENT Exam: Mucous Membranes Moist, Normal Exam - Neck Exam Neck Exam: Full ROM, Normal Inspection. absent: Lymphadenopathy - Respiratory Exam Respiratory Exam: Decreased Breath Sounds - Cardiovascular Exam Cardiovascular Exam: REGULAR RHYTHM, +S1, +S2 - GI/Abdominal Exam GI & Abdominal Exam: Soft, Diminished Bowel Sounds - Rectal Exam Rectal Exam: Deferred
--- NOTE | 2017-08-31 20:16 | CP.PCM.PN ---
Subjective - Date & Time of Evaluation Date of Evaluation: 08/31/17 Time of Evaluation: 20:16 - Subjective Subjective: CHIEF COMPLAINTS TODAY : AFEBRILE,BP 102/64. C/O COUGH. PLEUITIC CHEST PAIN POSTERIORLY LEFT SIDE. ROS. HEENT : N. Resp : +VE COUGH , +VE WHEEZING/PLEURITIC CHEST PAIN. ,NO hemoptysis Cardio : No anginal CP, PND, orthopnea, palpitation GI : No abd.pain, n/v ,diarrhea or GI bleeding . PHOTORADIO OPERATOR : No headache, vertigo, focal deficit. Musculoskel : No joint swelling , Derm : No rash Psych : Normal affect. Ext : No swelling ,calf pain PE. Pt. is alert awake in no distress. V.S As noted in the chart Head ,ear nose,throat and eyes : Normal. Neck : Supple with normal carotids. Lungs: BILATERAL WHEEZING. Heart : S1 & S2 normal with S4. No murmur. Abd : Soft non tender with normal bowel sounds. Neuro : Moves all ext. with no localized deficit. Ext : No edema with intact pulses.Non tender calves Derm : No rashes or decubitus ulcer. LABS/RADIOLOGY: ESR 50 CRP >15. lEGIONELLA ANTIGEN NEGATIVE. mYCOPLASMA iGm NEGATIVE. iNFLUENZA a AND b- RAPID ANTIGEN TEST. ASSESSMENT LEFT LOWER LOBE PNEUMONIA ?CAP. EXACERBATION OF ASTH /PLAN : CONTINUE iv ZOSYN 2.25 IV Q 8HRLY. CONTINUE iv ZITHROMAX 250 MG ONCE A DAY.. fOLLOW-UP CXR IN AM. F/U SPUTUM CULTURES PULMONARY TOILET . Objective - Vital Signs/Intake and Output Vital Signs (last 24 hours): Temp Pulse Resp BP Pulse Ox 98.3 F 104 H 20 102/64 97 08/31/17 15:00 08/31/17 16:00 08/31/17 15:00 08/31/17 15:00 08/31/17 15:00 Intake and Output: 08/31/17 09/01/17 18:59 06:59 Intake Total 640 Balance 640 - Medications Medications: Current Medications Albuterol (Ventolin Hfa 90 Mcg/Actuation (8 G)) 1 puff IH RQ4 PRN PRN Reason: Shortness of Breath Albuterol/Ipratropium (Duoneb 3 Mg/0.5 Mg (3 Ml) Ud) 3 ml INH RQ6 [facility] Last Admin: 08/31/17 19:08 Dose: 3 ml Budesonide (Pulmicort Respules) 0.25 mg INH RQ12 [facility] Last Admin: 08/31/17 19:09 Dose: Not Given Enoxaparin Sodium (Lovenox) 40 mg SC DAILY [facility] Last Admin: 08/31/17 09:35 Dose: 40 mg Azithromycin 250 mg/ Sodium (Chloride) 250 mls @ 250 mls/hr IVPB Q24H [facility] Last Admin: 08/31/17 13:53 Dose: 250 mls/hr Piperacillin Sod/Tazobactam Sod (Zosyn 2.25 Gm Iv Premix) 2.25 gm in 50 mls @ 100 mls/hr IVPB Q8H [facility] Last Admin: 08/31/17 15:06 Dose: 100 mls/hr Methylprednisolone (Solu-Medrol) 60 mg IVP Q8 [facility] Last Admin: 08/31/17 18:41 Dose: 60 mg Montelukast Sodium (Singulair) 10 mg PO HS [facility] Last Admin: 08/30/17 23:18 Dose: Not Given Pantoprazole Sodium (Protonix Ec Tab) 40 mg PO DAILY [facility] Last Admin: 08/31/17 09:34 Dose: 40 mg Potassium Chloride (Klor-Con 10) 10 meq PO BRK [facility] Last Admin: 08/31/17 08:22 Dose: 10 meq Promethazine HCl/Dextromethorphan (Phenergan Dm Syrup) 5 ml PO Q6H PRN PRN Reason: Cough Last Admin: 08/30/17 18:24 Dose: 5 ml - Labs Labs: 08/31/17 08:24 08/31/17 08:24 PT 12.8 SECONDS (9.7-12.2) H 08/29/17 11:19 INR 1.1 08/29/17 11:19 APTT 27 SECONDS (21-34) 08/29/17 11:19 Assessment and Plan (1) Pneumonia Assessment & Plan: CONTINUE IV ZOSYN DECREASE DOSE 2.25MG IV Q 8HRLY. 08/29/17 ON IV ZITHROMAX 250MG IV Q 24HRLY. 08/30/17. PULM TOILET. Status: Acute Status: Acute (2) Hypoxia Assessment & Plan: PULSE OX 97%.. PRESENTLY DENIES ANY SHORTNESS OF BREATH/OR CHEST PAIN. Status: Acute (3) Asthma Status: Resolved
[2017-09-01] MEDS: Albuterol-Ipratrop 3 mg / 0.5 (3 ml) UD INH SCH ×4 (01:26→20:00)
[2017-09-01] MEDS: Piperacill/Tazo 2.25gm in Dex 2.25 GM/50 ML BAG IVPB SCH ×3 (05:41→21:33)
[2017-09-01] MEDS: Promethazine DM 6.25 mg-15 mg/5 ml Syrup PO PRN (06:12)
[2017-09-01] MEDS: Budesonide 0.25 mg/2 ml Inhal Susp UD INH SCH ×2 (07:31→20:00)
[2017-09-01] MEDS: Potassium Chloride 10 mEq ER Tab PO SCH (08:07)
[2017-09-01] MEDS: Enoxaparin 40 mg Syringe SC SCH (09:29)
[2017-09-01] MEDS: Pantoprazole 40 mg EC Tab PO SCH (09:29)
--- NOTE | 2017-09-01 10:16 | RAD ---
HISTORY: COMPARISON: 08/29/2017. TECHNIQUE: Chest PA and lateral FINDINGS: LINES AND TUBES: None. LUNG AND PLEURA: The lungs are well inflated and clear. HEART AND MEDIASTINUM: The heart is not enlarged. The hilar and mediastinal contours are within normal limits. SKELETAL STRUCTURES: The bony structures are within normal limits for the patient's age. VISUALIZED UPPER ABDOMEN: Normal. OTHER FINDINGS: None. IMPRESSION: No active pulmonary disease.
[2017-09-01] MEDS: SODIUM CHLORIDE 0.45% IVPB SCH (14:19)
[2017-09-01] MEDS: AZITHROMYCIN IVPB SCH (14:19)
--- NOTE | 2017-09-01 15:45 | CP.PCM.PN ---
Subjective - Date & Time of Evaluation Date of Evaluation: 09/01/17 Time of Evaluation: 09:00 - Subjective Subjective: clinically same Objective - Vital Signs/Intake and Output Vital Signs (last 24 hours): Temp Pulse Resp BP Pulse Ox 97.9 F 102 H 18 107/71 97 09/01/17 07:15 09/01/17 07:15 09/01/17 07:15 09/01/17 07:15 09/01/17 07:15 Intake and Output: 09/01/17 09/01/17 06:59 18:59 Intake Total 530 Balance 530 - Medications Medications: Current Medications Albuterol (Ventolin Hfa 90 Mcg/Actuation (8 G)) 1 puff IH RQ4 PRN PRN Reason: Shortness of Breath Albuterol/Ipratropium (Duoneb 3 Mg/0.5 Mg (3 Ml) Ud) 3 ml INH RQ6 [facility] Last Admin: 09/01/17 13:30 Dose: 3 ml Budesonide (Pulmicort Respules) 0.25 mg INH RQ12 [facility] Last Admin: 09/01/17 07:31 Dose: 0.25 mg Enoxaparin Sodium (Lovenox) 40 mg SC DAILY [facility] Last Admin: 09/01/17 09:29 Dose: 40 mg Azithromycin 250 mg/ Sodium (Chloride) 250 mls @ 250 mls/hr IVPB Q24H [facility] Last Admin: 09/01/17 14:19 Dose: 250 mls/hr Piperacillin Sod/Tazobactam Sod (Zosyn 2.25 Gm Iv Premix) 2.25 gm in 50 mls @ 100 mls/hr IVPB Q8H [facility] Last Admin: 09/01/17 13:40 Dose: 100 mls/hr Methylprednisolone (Solu-Medrol) 60 mg IVP Q8 [facility] Last Admin: 09/01/17 13:38 Dose: 60 mg Montelukast Sodium (Singulair) 10 mg PO HS [facility] Last Admin: 08/31/17 21:33 Dose: 10 mg Pantoprazole Sodium (Protonix Ec Tab) 40 mg PO DAILY [facility] Last Admin: 09/01/17 09:29 Dose: 40 mg Potassium Chloride (Klor-Con 10) 10 meq PO BRK [facility] Last Admin: 09/01/17 08:07 Dose: Not Given Promethazine HCl/Dextromethorphan (Phenergan Dm Syrup) 5 ml PO Q6H PRN PRN Reason: Cough Last Admin: 09/01/17 06:12 Dose: 5 ml - Labs Labs: 08/31/17 08:24 08/31/17 08:24 PT 12.8 SECONDS (9.7-12.2) H 08/29/17 11:19 INR 1.1 08/29/17 11:19 APTT 27 SECONDS (21-34) 08/29/17 11:19
--- NOTE | 2017-09-01 17:27 | CP.PCM.PN ---
Subjective - Date & Time of Evaluation Date of Evaluation: 09/01/17 Time of Evaluation: 17:27 - Subjective Subjective: CHIEF COMPLAINTS TODAY : AFEBRILE, VSS FEELING BETTER. states today [birth year] her birthday !!!. ROS. HEENT : N. Resp : LESS+VE COUGH , NO CHEST PAIN ,. ,NO hemoptysis Cardio : No anginal CP, PND, orthopnea, palpitation GI : No abd.pain, n/v ,diarrhea or GI bleeding . RADIOGRAPHER MAMMOGRAPHER : No headache, vertigo, focal deficit. Musculoskel : No joint swelling , Derm : No rash Psych : Normal affect. Ext : No swelling ,calf pain PE. Pt. is alert awake in no distress. V.S As noted in the chart Head ,ear nose,throat and eyes : Normal. Neck : Supple with normal carotids. Lungs: LESS WHEEZE Heart : S1 & S2 normal with S4. No murmur. Abd : Soft non tender with normal bowel sounds. Neuro : Moves all ext. with no localized deficit. Ext : No edema with intact pulses.Non tender calves Derm : No rashes or decubitus ulcer. LABS/RADIOLOGY: CXR 09/01/17 CLEAR LUNGS. ESR 50 CRP >15. lEGIONELLA ANTIGEN NEGATIVE. mYCOPLASMA iGm NEGATIVE. iNFLUENZA a AND b- RAPID ANTIGEN TEST. ASSESSMENT LEFT LOWER LOBE PNEUMONIA EXACERBATION OF ASTHMA /PLAN : CONTINUE iv ZOSYN 2.25 IV Q 8HRLY. CONTINUE iv ZITHROMAX 250 MG ONCE A DAY.. CAN SWITCH TO PO AUGMENTIN 250MG PO BID X 5DAYS, PULMONARY TOILET . CASE DISCUSSED WITH PMD DR Marilin BENDER. Objective - Vital Signs/Intake and Output Vital Signs (last 24 hours): Temp Pulse Resp BP Pulse Ox 98.0 F 121 H 20 99/63 L 95 09/01/17 15:12 09/01/17 15:12 09/01/17 15:12 09/01/17 15:12 09/01/17 15:12 Intake and Output: 09/01/17 09/01/17 06:59 18:59 Intake Total 530 830 Balance 530 830 - Medications Medications: Current Medications Albuterol (Ventolin Hfa 90 Mcg/Actuation (8 G)) 1 puff IH RQ4 PRN PRN Reason: Shortness of Breath Albuterol/Ipratropium (Duoneb 3 Mg/0.5 Mg (3 Ml) Ud) 3 ml INH RQ6 [facility] Last Admin: 09/01/17 13:30 Dose: 3 ml Budesonide (Pulmicort Respules) 0.25 mg INH RQ12 [facility] Last Admin: 09/01/17 07:31 Dose: 0.25 mg Enoxaparin Sodium (Lovenox) 40 mg SC DAILY [facility] Last Admin: 09/01/17 09:29 Dose: 40 mg Azithromycin 250 mg/ Sodium (Chloride) 250 mls @ 250 mls/hr IVPB Q24H [facility] Last Admin: 09/01/17 14:19 Dose: 250 mls/hr Piperacillin Sod/Tazobactam Sod (Zosyn 2.25 Gm Iv Premix) 2.25 gm in 50 mls @ 100 mls/hr IVPB Q8H [facility] Last Admin: 09/01/17 13:40 Dose: 100 mls/hr Methylprednisolone (Solu-Medrol) 60 mg IVP Q8 [facility] Last Admin: 09/01/17 13:38 Dose: 60 mg Montelukast Sodium (Singulair) 10 mg PO HS [facility] Last Admin: 08/31/17 21:33 Dose: 10 mg Pantoprazole Sodium (Protonix Ec Tab) 40 mg PO DAILY [facility] Last Admin: 09/01/17 09:29 Dose: 40 mg Potassium Chloride (Klor-Con 10) 10 meq PO BRK [facility] Last Admin: 09/01/17 08:07 Dose: Not Given Promethazine HCl/Dextromethorphan (Phenergan Dm Syrup) 5 ml PO Q6H PRN PRN Reason: Cough Last Admin: 09/01/17 06:12 Dose: 5 ml - Labs Labs: 08/31/17 08:24 08/31/17 08:24 PT 12.8 SECONDS (9.7-12.2) H 08/29/17 11:19 INR 1.1 08/29/17 11:19 APTT 27 SECONDS (21-34) 08/29/17 11:19 Assessment and Plan (1) Pneumonia Status: Acute (2) Hypoxia Status: Acute (3) Asthma Status: Resolved
[2017-09-02] MEDS: Albuterol-Ipratrop 3 mg / 0.5 (3 ml) UD INH SCH ×3 (01:42→13:12)
[2017-09-02] MEDS: Piperacill/Tazo 2.25gm in Dex 2.25 GM/50 ML BAG IVPB SCH ×2 (05:33→14:08)
[2017-09-02] MEDS: Budesonide 0.25 mg/2 ml Inhal Susp UD INH SCH (07:21)
[2017-09-02] MEDS: Enoxaparin 40 mg Syringe SC SCH (09:28)
[2017-09-02] MEDS: Pantoprazole 40 mg EC Tab PO SCH (09:29)
[2017-09-02] MEDS: Potassium Chloride 10 mEq ER Tab PO SCH (11:54)
[2017-09-02] MEDS: Promethazine DM 6.25 mg-15 mg/5 ml Syrup PO PRN (14:08)
--- NOTE | 2017-09-02 14:21 | CP.PCM.PN ---
Subjective - Date & Time of Evaluation Date of Evaluation: 09/02/17 Time of Evaluation: 14:21 Objective - Vital Signs/Intake and Output Vital Signs (last 24 hours): Temp Pulse Resp BP Pulse Ox 98.2 F 98 H 18 98/60 L 100 09/02/17 07:00 09/02/17 08:00 09/02/17 07:00 09/02/17 07:00 09/02/17 07:00 Intake and Output: 09/02/17 09/02/17 06:59 18:59 Intake Total 650 450 Balance 650 450 - Medications Medications: Current Medications Albuterol (Ventolin Hfa 90 Mcg/Actuation (8 G)) 1 puff IH RQ4 PRN PRN Reason: Shortness of Breath Albuterol/Ipratropium (Duoneb 3 Mg/0.5 Mg (3 Ml) Ud) 3 ml INH RQ6 [facility] Last Admin: 09/02/17 13:12 Dose: 3 ml Budesonide (Pulmicort Respules) 0.25 mg INH RQ12 [facility] Last Admin: 09/02/17 07:21 Dose: 0.25 mg Enoxaparin Sodium (Lovenox) 40 mg SC DAILY [facility] Last Admin: 09/02/17 09:28 Dose: 40 mg Azithromycin 250 mg/ Sodium (Chloride) 250 mls @ 250 mls/hr IVPB Q24H [facility] Last Admin: 09/01/17 14:19 Dose: 250 mls/hr Piperacillin Sod/Tazobactam Sod (Zosyn 2.25 Gm Iv Premix) 2.25 gm in 50 mls @ 100 mls/hr IVPB Q8H [facility] Last Admin: 09/02/17 14:08 Dose: 100 mls/hr Methylprednisolone (Solu-Medrol) 60 mg IVP Q8 [facility] Last Admin: 09/02/17 13:24 Dose: 60 mg Montelukast Sodium (Singulair) 10 mg PO HS [facility] Last Admin: 09/01/17 21:32 Dose: 10 mg Pantoprazole Sodium (Protonix Ec Tab) 40 mg PO DAILY [facility] Last Admin: 09/02/17 09:29 Dose: 40 mg Potassium Chloride (Klor-Con 10) 10 meq PO BRK [facility] Last Admin: 09/02/17 11:54 Dose: 10 meq Promethazine HCl/Dextromethorphan (Phenergan Dm Syrup) 5 ml PO Q6H PRN PRN Reason: Cough Last Admin: 09/02/17 14:08 Dose: 5 ml - Labs Labs: 08/31/17 08:24 08/31/17 08:24 PT 12.8 SECONDS (9.7-12.2) H 08/29/17 11:19 INR 1.1 08/29/17 11:19 APTT 27 SECONDS (21-34) 08/29/17 11:19
[2017-09-02] MEDS: SODIUM CHLORIDE 0.45% IVPB SCH (14:47)
[2017-09-02] MEDS: AZITHROMYCIN IVPB SCH (14:47)
[2017-09-02 15:57] VITALS: BP 112/71; PULSE 118; RESP 20; TEMP 98.4; O2SAT 95
--- NOTE | 2017-09-02 17:12 | CP.PCM.PN ---
Subjective - Date & Time of Evaluation Date of Evaluation: 09/02/17 Time of Evaluation: 17:08 - Subjective Subjective: PT SEEN AND EXAMINED TODAY, DENIES ANY CHEST PAIN, SHORTNESS OF BREATH, COUGH, RESPIRATION EASY AND UNLABORED, NAD Objective - Vital Signs/Intake and Output Vital Signs (last 24 hours): Temp Pulse Resp BP Pulse Ox 98.4 F 118 H 20 112/71 95 09/02/17 15:00 09/02/17 15:00 09/02/17 15:00 09/02/17 15:00 09/02/17 15:00 Intake and Output: 09/02/17 09/02/17 06:59 18:59 Intake Total 650 600 Balance 650 600 - Medications Medications: Current Medications Albuterol (Ventolin Hfa 90 Mcg/Actuation (8 G)) 1 puff IH RQ4 PRN PRN Reason: Shortness of Breath Albuterol/Ipratropium (Duoneb 3 Mg/0.5 Mg (3 Ml) Ud) 3 ml INH RQ6 [facility] Last Admin: 09/02/17 13:12 Dose: 3 ml Budesonide (Pulmicort Respules) 0.25 mg INH RQ12 [facility] Last Admin: 09/02/17 07:21 Dose: 0.25 mg Enoxaparin Sodium (Lovenox) 40 mg SC DAILY [facility] Last Admin: 09/02/17 09:28 Dose: 40 mg Azithromycin 250 mg/ Sodium (Chloride) 250 mls @ 250 mls/hr IVPB Q24H [facility] Last Admin: 09/02/17 14:47 Dose: 250 mls/hr Piperacillin Sod/Tazobactam Sod (Zosyn 2.25 Gm Iv Premix) 2.25 gm in 50 mls @ 100 mls/hr IVPB Q8H [facility] Last Admin: 09/02/17 14:08 Dose: 100 mls/hr Methylprednisolone (Solu-Medrol) 60 mg IVP Q8 [facility] Last Admin: 09/02/17 13:24 Dose: 60 mg Montelukast Sodium (Singulair) 10 mg PO HS [facility] Last Admin: 09/01/17 21:32 Dose: 10 mg Pantoprazole Sodium (Protonix Ec Tab) 40 mg PO DAILY [facility] Last Admin: 09/02/17 09:29 Dose: 40 mg Potassium Chloride (Klor-Con 10) 10 meq PO BRK [facility] Last Admin: 09/02/17 11:54 Dose: 10 meq Promethazine HCl/Dextromethorphan (Phenergan Dm Syrup) 5 ml PO Q6H PRN PRN Reason: Cough Last Admin: 09/02/17 14:08 Dose: 5 ml - Labs Labs: 08/31/17 08:24 08/31/17 08:24 PT 12.8 SECONDS (9.7-12.2) H 08/29/17 11:19 INR 1.1 08/29/17 11:19 APTT 27 SECONDS (21-34) 08/29/17 11:19 Assessment and Plan - Assessment and Plan (Free Text) Plan: 62 Y/O FEMALE WITH PMHX ASTHMA ADMITTED FOR PNEUMONIA, EXACERBATION OF ASTHMA AZITHROMYCIN AND ZOSYN IV - INPATIENT SWITCHED TO AUGMENTIN 250 MG PO BID FOR 5 DAYS AND COUGH MEDS SAFE FOR OUTPT F/U WITH PMD RETURN TO ER FOR ANY WORSENING S/S AGREE, VERBALIZE UNDERSTANDING
--- NOTE | 2017-09-02 17:41 | CP.PCM.PN ---
Subjective - Date & Time of Evaluation Date of Evaluation: 09/02/17 Time of Evaluation: 10:40 - Subjective Subjective: clinically same Objective - Vital Signs/Intake and Output Vital Signs (last 24 hours): Temp Pulse Resp BP Pulse Ox 98.4 F 118 H 20 112/71 95 09/02/17 15:00 09/02/17 15:00 09/02/17 15:00 09/02/17 15:00 09/02/17 15:00 Intake and Output: 09/02/17 09/02/17 06:59 18:59 Intake Total 650 600 Balance 650 600 - Medications Medications: Current Medications Albuterol (Ventolin Hfa 90 Mcg/Actuation (8 G)) 1 puff IH RQ4 PRN PRN Reason: Shortness of Breath Albuterol/Ipratropium (Duoneb 3 Mg/0.5 Mg (3 Ml) Ud) 3 ml INH RQ6 [facility] Last Admin: 09/02/17 13:12 Dose: 3 ml Budesonide (Pulmicort Respules) 0.25 mg INH RQ12 [facility] Last Admin: 09/02/17 07:21 Dose: 0.25 mg Enoxaparin Sodium (Lovenox) 40 mg SC DAILY [facility] Last Admin: 09/02/17 09:28 Dose: 40 mg Azithromycin 250 mg/ Sodium (Chloride) 250 mls @ 250 mls/hr IVPB Q24H [facility] Last Admin: 09/02/17 14:47 Dose: 250 mls/hr Piperacillin Sod/Tazobactam Sod (Zosyn 2.25 Gm Iv Premix) 2.25 gm in 50 mls @ 100 mls/hr IVPB Q8H [facility] Last Admin: 09/02/17 14:08 Dose: 100 mls/hr Methylprednisolone (Solu-Medrol) 60 mg IVP Q8 [facility] Last Admin: 09/02/17 13:24 Dose: 60 mg Montelukast Sodium (Singulair) 10 mg PO HS [facility] Last Admin: 09/01/17 21:32 Dose: 10 mg Pantoprazole Sodium (Protonix Ec Tab) 40 mg PO DAILY [facility] Last Admin: 09/02/17 09:29 Dose: 40 mg Potassium Chloride (Klor-Con 10) 10 meq PO BRK [facility] Last Admin: 09/02/17 11:54 Dose: 10 meq Promethazine HCl/Dextromethorphan (Phenergan Dm Syrup) 5 ml PO Q6H PRN PRN Reason: Cough Last Admin: 09/02/17 14:08 Dose: 5 ml - Labs Labs: 08/31/17 08:24 08/31/17 08:24 PT 12.8 SECONDS (9.7-12.2) H 08/29/17 11:19 INR 1.1 08/29/17 11:19 APTT 27 SECONDS (21-34) 08/29/17 11:19
--- NOTE | 2017-09-03 11:43 | CARD ---
APPROVED REPORT EKG Measurement Heart [id number] <Conclusion> Sinus tachycardia Otherwise normal ECG
== END 2017-09-02 19:16 | disposition home or self-care (01) | DRG 541 ==
LOC: C.ER 10:24 → C.9E 13:07 → C.6T 14:24
PROVIDERS: ADMIT Internal Medicine Nephrology; ATTEND Internal Medicine Nephrology
DX: J44.0 Chronic obstructive pulmonary disease with (acute) lower respiratory infection (principal); J18.9 Pneumonia, unspecified organism; R09.02 Hypoxemia; J45.901 Unspecified asthma with (acute) exacerbation